=== PATIENT | female | born 1950 | race Two or more races ===

== ENCOUNTER 2020-03-08 05:50 | Inpatient (IN) | payer OTHER, MEDICAID ==
[~2020-03-08] VITALS: Ht 195.6 cm; Wt 93.4 kg
[~2020-03-08 05:50] MED LIST: LISI PO; norvasc PO
[2020-03-08] MEDS ORDERED: FUROSEMIDE 20 MG/2 ML VIAL ONE (05:58)
[2020-03-08] MEDS ORDERED: FUROSEMIDE 100 MG/10ML VIAL IV ONE (06:00)
[2020-03-08 06:02] VITALS: BP 190/91
[2020-03-08] MEDS ORDERED: cloNIDine HCL 0.1 MG TAB PO ONE (06:15)
[2020-03-08 06:29] LABS: Basophils # (auto) 0.1 10 ^3/uL (0-0.2); Basophils % (auto) 0.8 % (0.0-2.0); Eosinophils # (auto) 0.2 10 ^3/uL (0-0.8); Hematocrit 46.6 % (36.0-46.0); Hemoglobin 15.1 g/dL (12.2-16.2); Lymphocytes % (auto) 38.7 % (10.0-50.0); Mean Corpuscular Hemoglobin 28.4 pg (28.0-32.0); Mean Corpuscular Hgb Conc. 32.4 g/dL (32.0-36.0); Mean Corpuscular Volume 87.6 fL (80.0-100.0); Monocytes # (auto) 0.7 10 ^3/uL (0-1.3); Neutrophils # (auto) 5.3 10 ^3/uL (1.6-8.6); Neutrophils % (auto) 51.5 % (37.0-80.0); Nucleated Red Blood Cells % 0.1 %; Platelet Count (auto) 199 10^3/uL (140-450); Red Blood Cells 5.32 10^6/uL (4.0-5.20); Red Cell Distribution Width 15.8 % (11.8-14.3); White Blood Cell 10.2 10^3/uL (4.4-10.8)
[2020-03-08 06:46] LABS: Urine Bacteria NONE SEEN /hpf (None Seen); Urine Blood TRACE /uL (Negative); Urine Specific Gravity 1.006 (1.001-1.035); Urine WBC 1 /hpf (0 - 5)
[2020-03-08] MEDS ORDERED: SODIUM CHLORIDE 0.9% 1,000 ML IV ONE (06:49)
[2020-03-08 06:50] LABS: Albumin 3.6 g/dL (3.4-5.0); Anion Gap 7 (5-15); Blood Urea Nitrogen 22 mg/dL (7-18); Calcium 8.7 mg/dL (8.5-10.1); Carbon Dioxide 23 mmol/L (21-32); Chloride 108 mmol/L (98-107); Glucose 157 mg/dL (74-106); Magnesium 2.2 mg/dL (1.6-2.6); Potassium 3.9 mmol/L (3.5-5.1); Sodium 138 mmol/L (136-145)
[2020-03-08 06:52] LABS: Lactic Acid w/Reflex 2.6 mmol/L (0.4-2.0)
[2020-03-08 06:56] LABS: Alanine Aminotransferase 55 U/L (13-56); Alkaline Phosphatase 106 U/L (45-117); Aspartate Aminotransferase 53 U/L (15-37); BUN/Creatinine Ratio 25.9; Bilirubin, Total 0.4 mg/dL (0.2-1.0); GFR African American 86 mL/min; GFR Non-African American 71 mL/min
[2020-03-08] MEDS ORDERED: ZINC SULFATE 220mg CAP or TAB PO ONE (07:00)
[2020-03-08] MEDS ORDERED: AZITHROMYCIN 500MG/ 250ML 250 ML IV ONE (07:00)
[2020-03-08] MEDS ORDERED: ASCORBIC ACID 500 MG TAB PO ONE (07:00)
[2020-03-08] MEDS ORDERED: cefTRIAXone 1GM/50ML D5W 50 ML IV ONE (07:00)
[2020-03-08] MEDS ORDERED: LACTULOSE 20Gm/30ML SOLN PO PRN (08:45)
[2020-03-08] MEDS ORDERED: ALBUTEROL SULF 2.5 MG/0.5ML(0.5%) NEB SOLN NEB PRN (08:45)
[2020-03-08] MEDS ORDERED: MAGNESIUM SULFATE 1GM/100ML 100 ML IV ONE (08:45)
[2020-03-08] MEDS ORDERED: POTASSIUM EFFERVESENT TAB 25 MEQ PO ONE (08:45)
[2020-03-08] MEDS ORDERED: PROMETHAZINE HCL 25 MG/ML 1ML IV PRN (08:45)
[2020-03-08] MEDS ORDERED: MORPHINE SULF INJ 2 MG/ML SYRINGE 1ML IV PRN (08:45)
[2020-03-08] MEDS ORDERED: DEXTROSE (50%) 50ML SYRG IV PRN (08:45)
[2020-03-08] MEDS ORDERED: TEMAZEPAM 15 MG CAP PO PRN (08:45)
[2020-03-08] MEDS ORDERED: ACETAMINOPHEN 500 MG TAB PO PRN (08:45)
[2020-03-08] MEDS ORDERED: NITROGLYCERIN 0.4 MG SL TAB SL PRN (08:45)
[2020-03-08] MEDS ORDERED: IOHEXOL 350 MG/ML 100ML IJ ONE (08:59)
[2020-03-08 09:00] VITALS: BP 161/85
[2020-03-08] MEDS ORDERED: POTASSIUM CHL 20 Meq TABLET PO ONE (09:00)
[2020-03-08] MEDS: cefTRIAXone 1GM/50ML D5W 50 ML IV SCH (09:00)
[2020-03-08] MEDS ORDERED: ASPirin 81 mg TAB PO SCH (10:00)
[2020-03-08] MEDS ORDERED: NITROGLYCERIN 0.2MG/HR TOPICAL PATCH TD SCH (10:00)
[2020-03-08 10:22] VITALS: BP 148/69
[2020-03-08] MEDS: ACCU-CHEK COMFORT CURVE STRIP VI SCH ×3 (11:30→22:00)
[2020-03-08] MEDS: FUROSEMIDE 40 MG/4 ML VIAL IV SCH (11:31)
[2020-03-08] MEDS: ASPirin 81 mg TAB PO SCH (11:32)
[2020-03-08] MEDS: ENOXAPARIN SOD 40 MG/0.4 ML SYRINGE SC SCH (11:33)
[2020-03-08] MEDS: ENALAPRIL MALEATE 2.5 MG TAB PO SCH (11:33)
[2020-03-08] MEDS: traMADol HCL 50 MG TAB PO PRN (12:40)
[2020-03-08 13:00] VITALS: BP 149/69
[2020-03-08] MEDS ORDERED: METOPROLOL TARTRATE 25 MG TAB PO ONE (13:30)
[2020-03-08 14:05] LABS: Cholesterol 204 mg/dL (< 200); HDL Cholesterol 53 mg/dL (40-59); LDL Cholesterol 130 mg/dL (< 100); Triglycerides 233 mg/dL (< 150)
[2020-03-08] MEDS: SODIUM CHLOR 0.9% PF (SALINE LOCK) 10ML VIAL/SYR IV SCH ×2 (14:06→22:42)
[2020-03-08 20:06] LABS: Free T3 3.25 pg/mL (2.3-4.2); Free T4 (Free Thyroxine) 1.1 ng/dL (0.89-1.76)
[2020-03-08 22:00] VITALS: BP 161/77
[2020-03-08] MEDS ORDERED: ATORVASTATIN 20 MG TAB PO SCH ×2 (22:00)
[2020-03-08] MEDS: MAGNESIUM OXIDE 400 MG TAB PO SCH (22:40)
[2020-03-08] MEDS: METOPROLOL TARTRATE 25 MG TAB PO SCH (22:40)
[2020-03-09 04:30] VITALS: BP 135/68
[2020-03-09 06:26] LABS: Basophils # (auto) 0 10 ^3/uL (0-0.2); Basophils % (auto) 0.4 % (0.0-2.0); Eosinophils # (auto) 0.2 10 ^3/uL (0-0.8); Eosinophils % (auto) 2.5 % (0.0-7.0); Hematocrit 43.2 % (36.0-46.0); Hemoglobin 14.2 g/dL (12.2-16.2); Lymphocytes # (auto) 1.9 10 ^3/uL (0.4-5.4); Lymphocytes % (auto) 27.9 % (10.0-50.0); Mean Corpuscular Hemoglobin 28.6 pg (28.0-32.0); Mean Corpuscular Hgb Conc. 32.9 g/dL (32.0-36.0); Mean Corpuscular Volume 86.8 fL (80.0-100.0); Monocytes # (auto) 0.6 10 ^3/uL (0-1.3); Monocytes % (auto) 9.4 % (0.0-12.0); Neutrophils % (auto) 59.8 % (37.0-80.0); Platelet Count (auto) 184 10^3/uL (140-450); Red Blood Cells 4.98 10^6/uL (4.0-5.20); Red Cell Distribution Width 15.5 % (11.8-14.3); White Blood Cell 6.8 10^3/uL (4.4-10.8)
[2020-03-09] MEDS: SODIUM CHLOR 0.9% PF (SALINE LOCK) 10ML VIAL/SYR IV SCH ×2 (06:37→14:00)
[2020-03-09] MEDS: ACCU-CHEK COMFORT CURVE STRIP VI SCH (06:38)
[2020-03-09 06:49] LABS: Potassium 3.9 mmol/L (3.5-5.1)
[2020-03-09 06:54] LABS: BUN/Creatinine Ratio 26.9; Calcium 8.6 mg/dL (8.5-10.1)
[2020-03-09] MEDS ORDERED: LEVOTHYROXINE SODIUM 50 MCG TAB PO SCH (07:00)
[2020-03-09] MEDS: IOHEXOL 350 MG/ML 100ML IJ ONE ×2 (07:56→12:18)
[2020-03-09 09:00] VITALS: BP 153/73
[2020-03-09] MEDS: cefTRIAXone 1GM/50ML D5W 50 ML IV SCH (09:50)
[2020-03-09] MEDS: MAGNESIUM OXIDE 400 MG TAB PO SCH (09:51)
[2020-03-09] MEDS: FUROSEMIDE 40 MG/4 ML VIAL IV SCH (09:51)
[2020-03-09] MEDS: ENALAPRIL MALEATE 2.5 MG TAB PO SCH (09:51)
[2020-03-09] MEDS: ENOXAPARIN SOD 40 MG/0.4 ML SYRINGE SC SCH (09:51)
[2020-03-09] MEDS: ASPirin 81 mg TAB PO SCH (09:52)
[2020-03-09] MEDS: METOPROLOL TARTRATE 25 MG TAB PO SCH (09:53)
[2020-03-09] MEDS ORDERED: POTASSIUM CHL 20 Meq TABLET PO SCH (10:00)
[2020-03-09] MEDS ORDERED: PANTOPRAZOLE 40 MG TAB PO SCH (10:00)
[2020-03-09] MEDS ORDERED: AZITHROMYCIN 500MG/ 250ML 250 ML IV SCH (10:00)
[2020-03-09] MEDS ORDERED: MET25T PO (10:23)
[2020-03-09] MEDS ORDERED: ATOR20TA50 PO (10:23)
[2020-03-09] MEDS ORDERED: LEV50T PO (10:23)
[2020-03-09] MEDS ORDERED: ASPI81CH43 PO (10:23)
[2020-03-09] MEDS ORDERED: ENAL5TAB PO (10:23)
[2020-03-09] MEDS ORDERED: POTA1TAB61 PO (10:23)
[2020-03-09] MEDS ORDERED: FURO20TA3 PO (10:23)
[2020-03-09 11:40] VITALS: BP 153/73
[2020-03-09] MEDS ORDERED: OPTISON 3ml Vial for INJ IV ONE (12:03)
[2020-03-09 14:00] VITALS: BP 129/75
[2020-03-09] MEDS ORDERED: SACU1TAB PO (16:33)
[2020-03-09 17:00] VITALS: BP 160/77
[2020-03-09] MEDS: traMADol HCL 50 MG TAB PO PRN (17:20)
[2020-03-09 17:59] LABS: BUN/Creatinine Ratio 24.7; Calcium 8.6 mg/dL (8.5-10.1); Magnesium 2.5 mg/dL (1.6-2.6)
[2020-03-10] MEDS ORDERED: SACUBITRIL-VALSARTAN 24mg/26mg TAB PO SCH (22:00)
== END 2020-03-09 19:06 | disposition home or self-care (01) | DRG 291 ==
LOC: ER 05:50 → TELE 05:51 → TELE-EAST 11:17 → TELE-CENTR 18:02
PROVIDERS: ADMIT Internal Medicine; ATTEND Internal Medicine
DX: I11.0 Hypertensive heart disease with heart failure (principal); J18.9 Pneumonia, unspecified organism; J96.00 Acute respiratory failure, unspecified whether with hypoxia or hypercapnia; I50.43 Acute on chronic combined systolic (congestive) and diastolic (congestive) heart failure; I16.0 Hypertensive urgency; R73.9 Hyperglycemia, unspecified; E03.9 Hypothyroidism, unspecified; E78.5 Hyperlipidemia, unspecified; E66.01 Morbid (severe) obesity due to excess calories; Z03.818 Encounter for observation for suspected exposure to other biological agents ruled out; Z90.49 Acquired absence of other specified parts of digestive tract; Z88.1 Allergy status to other antibiotic agents; Z88.2 Allergy status to sulfonamides; Z98.51 Tubal ligation status; Z68.24 Body mass index [BMI] 24.0-24.9, adult
CPT/HCPCS: 36415; 36600; 71045; 71046; 71275; 80048; 80053; 80061; 81001; 82550; 82805; 82962; 83036; 83605; 83735; 83880; 84439; 84443; 84481; 84484; 85025; 85379; 87040; 87070; 87804; 87880; 93005; 93306; 93970; 94640; 94660; 96365; 96366; 96368; 96375; 99291; G0378; J0696; Q9956

== ENCOUNTER 2020-03-11 12:06 | Inpatient (IN) | payer OTHER, MEDICAID ==
[~2020-03-11] VITALS: Ht 157.5 cm; Wt 88.9 kg
[~2020-03-11 12:06] MED LIST changes: +ASPI81CH43 PO; +ATOR20TA50 PO; +FURO20TA3 PO; +LEV50T PO; -LISI PO; +MET25T PO; +POTA1TAB61 PO; +SACU1TAB PO; -norvasc PO
[2020-03-11] MEDS ORDERED: methylPREDNISolone SOD SUCC 125 MG/2 ML VL ONE (13:06)
[2020-03-11] MEDS ORDERED: diphenhdrAMINE HCL 50 MG/1 ML VL ONE (13:06)
[2020-03-11] MEDS ORDERED: SODIUM CHLORIDE 0.9% 1,000 ML IV ONE (13:15)
[2020-03-11] MEDS ORDERED: FAMOTIDINE (10MG/ML) 2ML VL IV ONE (13:15)
[2020-03-11] MEDS ORDERED: SODIUM CHLORIDE 0.9% 1,000 ML IVB ONE (13:17)
[2020-03-11 13:22] LABS: Basophils # (auto) 0 10 ^3/uL (0-0.2); Eosinophils # (auto) 0.1 10 ^3/uL (0-0.8); Monocytes # (auto) 0.7 10 ^3/uL (0-1.3); Nucleated Red Blood Cells % 0.1 %
[2020-03-11 13:23] LABS: Basophils % (auto) 0.3 % (0.0-2.0); Eosinophils % (auto) 1.6 % (0.0-7.0); Hematocrit 53.1 % (36.0-46.0); Hemoglobin 16.9 g/dL (12.2-16.2); Lymphocytes % (auto) 24.4 % (10.0-50.0); Mean Corpuscular Hemoglobin 27.9 pg (28.0-32.0); Mean Corpuscular Hgb Conc. 31.8 g/dL (32.0-36.0); Mean Corpuscular Volume 87.7 fL (80.0-100.0); Monocytes % (auto) 7.9 % (0.0-12.0); Neutrophils # (auto) 5.5 10 ^3/uL (1.6-8.6); Neutrophils % (auto) 65.8 % (37.0-80.0); Platelet Count (auto) 202 10^3/uL (140-450); Red Blood Cells 6.05 10^6/uL (4.0-5.20); Red Cell Distribution Width 15.5 % (11.8-14.3); White Blood Cell 8.4 10^3/uL (4.4-10.8)
[2020-03-11] MEDS ORDERED: diphenhdrAMINE HCL 50 MG/1 ML VL IV ONE (13:30)
[2020-03-11] MEDS ORDERED: methylPREDNISolone SOD SUCC 125 MG/2 ML VL IV ONE (13:30)
[2020-03-11 13:40] LABS: Albumin 3.6 g/dL (3.4-5.0); Anion Gap 6 (5-15); Blood Urea Nitrogen 27 mg/dL (7-18); Calcium 8.6 mg/dL (8.5-10.1); Carbon Dioxide 28 mmol/L (21-32); Chloride 103 mmol/L (98-107); Glucose 123 mg/dL (74-106); Potassium 4.3 mmol/L (3.5-5.1); Sodium 137 mmol/L (136-145)
[2020-03-11 13:45] LABS: Alanine Aminotransferase 53 U/L (13-56); Alkaline Phosphatase 93 U/L (45-117); Aspartate Aminotransferase 35 U/L (15-37); BUN/Creatinine Ratio 24.8; Bilirubin, Total 0.4 mg/dL (0.2-1.0); GFR African American 64 mL/min; GFR Non-African American 53 mL/min
[2020-03-11 13:58] LABS: INR 1.17 (0.9-1.15); Partial Thromboplastin Time 29.9 sec (23.64-32.05)
[2020-03-11] MEDS ORDERED: MORPHINE SULF INJ 2 MG/ML SYRINGE 1ML IV PRN (14:45)
[2020-03-11] MEDS ORDERED: ACETAMINOPHEN 500 MG TAB PO PRN (14:45)
[2020-03-11] MEDS ORDERED: NITROGLYCERIN 0.4 MG SL TAB SL PRN (14:45)
[2020-03-11] MEDS ORDERED: LACTULOSE 20Gm/30ML SOLN PO PRN (14:45)
[2020-03-11] MEDS ORDERED: ALBUTEROL SULF 2.5 MG/0.5ML(0.5%) NEB SOLN NEB PRN (14:45)
[2020-03-11] MEDS ORDERED: PROMETHAZINE HCL 25 MG/ML 1ML IV PRN (14:45)
[2020-03-11] MEDS: methylPREDNISolone SOD SUCC 40 MG/ML VL IV SCH ×2 (14:45→22:34)
[2020-03-11 15:43] VITALS: BP 151/88
--- NOTE | 2020-03-11 15:57 | NUR ---
RT NOTE: NO TX INDICATED AT THIS TIME. NO SIGNS OF RESPIRATORY DISTRESS. ON RA SPO2 94 HR 69 RR 16. LUNG SOUNDS CLEAR/DIMINISHED T/O. PT AWARE THAT IF NEED FOR TX ARISES TO HAVE RESPIRATORY PAGED. WILL CONTINUE TO MONITOR.
--- NOTE | 2020-03-11 18:30 | NUR ---
Respiratory note: NO PRN TX GIVEN AT THIS TIME, NOT INDICATED. PT RESTING COMFORTABLY, NO SOB NOTED. SPO2 94% ON RA, HR 87, RR 16.
--- NOTE | 2020-03-11 20:00 | NUR ---
Telemetry admit from [facility] admitted to Telemetry unit. Patient oriented to Sarah Pemberton, primary RN, unit, room, bed, and unit policies regarding patient care and visiting hours. Patient now on continuous telemetry monitoring, tele box #53 and telemetry reading on arrival to unit is NSR, ST elevation, BBB. Patient weighed by bedscale and encouraged to call if they need something. All questions and concerns addressed, patient verbalized understanding.
[2020-03-11] MEDS: traMADol HCL 50 MG TAB PO PRN (20:56)
[2020-03-11] MEDS ORDERED: ZOLP5TAB5 PO (21:57)
[2020-03-11 22:00] VITALS: BP 156/94
--- NOTE | 2020-03-11 22:02 | NUR ---
HOSPITALIST PAGED PATIENT REQUESTING SLEEPING PILL
--- NOTE | 2020-03-11 22:16 | NUR ---
HOSPITALIST RETURNS CALL, NEW ORDERS RECEIVED TO CONTINUE HOME MED AMBIEN 5MG PO QHSPRN. ORDER READ BACK AND VERIFIED.
[2020-03-11] MEDS: FAMOTIDINE 20 MG TAB PO SCH (22:34)
[2020-03-11] MEDS: ZOLPIDEM TARTRATE 5 MG TAB PO PRN (22:35)
[2020-03-11] MEDS: CARVEDILOL 12.5 MG TAB PO SCH (22:35)
[2020-03-11] MEDS: LISINOPRIL 20 MG TAB PO SCH (22:35)
[2020-03-11] MEDS ORDERED: ENAL5TAB PO (22:42)
--- NOTE | 2020-03-12 01:00 | NUR ---
URINE SAMPLE SENT TO LAB FOR UA AND TOX SCREEN
--- NOTE | 2020-03-12 01:15 | NUR ---
PATIENT SITTING UP AT BEDSIDE TALKING TO ROOMMATE. PATIENT DENIES SYMPTOMS AT THIS TIME. PATIENT ON ROOM AIR WITH NO S/S OF DISTRESS NOTED.
[2020-03-12 01:22] LABS: Urine Amorphous Crystal FEW /hpf (None Seen); Urine Bacteria FEW /hpf (None Seen); Urine Blood 2+ /uL (Negative); Urine Hyaline Cast FEW /lpf (0 - 2); Urine Mucus FEW (None Seen); Urine Specific Gravity 1.021 (1.001-1.035); Urine WBC 2 /hpf (0 - 5)
[2020-03-12 01:28] LABS: Alcohol, Urine < 3.0 mg/dL (0-10); Amphetamine Screen, Urine NEGATIVE (NEGATIVE); Barbiturate Scree,Urine NEGATIVE (NEGATIVE); Benzodiazephine Screen, Urine NEGATIVE (NEGATIVE); Cannabinoid Screen, Urine NEGATIVE (NEGATIVE); Cocaine Screen, Urine NEGATIVE (NEGATIVE); Opiate Scree,Urine NEGATIVE (NEGATIVE); Phencyclidine Screen, Urine NEGATIVE (NEGATIVE)
[2020-03-12 05:00] VITALS: BP 115/69
--- NOTE | 2020-03-12 06:23 | NUR ---
MRSA SWAB SENT TO LAB
--- NOTE | 2020-03-12 07:07 | NUR ---
PT ASSESSED FOR PRN HHN TX. PT IS ON ROOM AIR, SPO2 92%, HR 83, RR 16. NO S/S OF RESPIRATORY DISTRESS. PRN HHN TX NOT INDICATED AT THIS TIME. WILL CONTINUE TO MONITOR.
--- NOTE | 2020-03-12 07:30 | NUR ---
Morning note Patient resting in bed with even and unlabored respirations, no distress noted. Instructed patient on POC, fall precautions, and to call for assistance as needed. patient verbalized understanding. Fall precautions in place with call light within reach.
--- NOTE | 2020-03-12 08:01 | NUR ---
nutrition note Pt consult for NO PORK. dietary informed
[2020-03-12 09:00] VITALS: BP 119/59
[2020-03-12] MEDS ORDERED: ENOXAPARIN SOD 40 MG/0.4 ML SYRINGE SC SCH (10:00)
[2020-03-12] MEDS: methylPREDNISolone SOD SUCC 40 MG/ML VL IV SCH (10:08)
[2020-03-12] MEDS: FAMOTIDINE 20 MG TAB PO SCH ×2 (10:08→21:49)
[2020-03-12] MEDS: amLODIPine BESYLATE 5 MG TAB PO SCH (10:08)
[2020-03-12] MEDS: LISINOPRIL 20 MG TAB PO SCH (10:09)
[2020-03-12] MEDS: CARVEDILOL 12.5 MG TAB PO SCH ×3 (10:09→21:49)
--- NOTE | 2020-03-12 11:12 | NUR ---
Patient transferred to room 276A via hospital bed. All personal belongings transferred with the patient. Respirations even and unlabored, no distress noted. Fall precautions in place with bed in lowest locked position with call light within reach.
--- NOTE | 2020-03-12 11:45 | NUR ---
was at bedside - Dr. Arriola This RN was at bedside.
[2020-03-12 13:30] VITALS: BP 119/60
--- NOTE | 2020-03-12 14:33 | NUR ---
Patient resting in bed with even and unlabored respirations, no distress noted. Call light within reach.
[2020-03-12 16:44] VITALS: BP 148/63
--- NOTE | 2020-03-12 18:41 | NUR ---
Closing note Patient resting in bed with even and unlabored respirations, no distress noted. Fall precautions in place with call light within reach.
--- NOTE | 2020-03-12 19:15 | NUR ---
Care endorsed to XAVIER Bell. Addendum: 03/12/20 at 1917 by Hayley Leach RN Care endorsed to XAVIER Bryson, not XAVIER Bell.
--- NOTE | 2020-03-12 19:35 | NUR ---
Opening Shift Note Assumed care of patient, awake and alert. No S/S of distress/SOB or pain. Fall and safety precautions in place. Call light within reach and able to use. Updated patient on her plan of care and to call for assist PRN, patient verbalized understanding and in agreement. Will continue to monitor for changes Q1hr and PRN.
--- NOTE | 2020-03-12 20:10 | NUR ---
Respiratory note: PT ASSESSED FOR PRN MED NEB TX. HR 80, RR 18, SPO2 98% ON RA. NO S/S OF ANY RESPIRATORY DISTRESS NOTED. ADVISED PT TO CALL IF TX IS NEEDED.
[2020-03-12] MEDS ORDERED: MORPHINE SULF INJ 2 MG/ML SYRINGE 1ML IV PRN (21:30)
--- NOTE | 2020-03-12 21:30 | NUR ---
RE: HIGH BP AND PAIN PATIENT'S BLOOD PRESSURE 177/74 mmHg. PATIENT COMPLAINS OF PAIN RATED 8/10 USING ADULT PAIN SCALE DESCRIBED GENERALIZED HEADACHE. SPOKE TO ON-CALL HOSP AT THIS TIME. RECEIVED NEW ORDERS FOR PRN SEVERE PAIN MEDICATION AND PRN HIGH BP MEDICATION (SEE NEW ORDERS). WILL CARRY OUT. WILL CONTINUE TO MONITOR.
[2020-03-12] MEDS: ZOLPIDEM TARTRATE 5 MG TAB PO PRN (21:50)
[2020-03-12 22:00] VITALS: BP 177/74
--- NOTE | 2020-03-12 22:00 | NUR ---
RE: EMAR MANAGER MACHINE / MISSED MED EMAR SHOWS MEDIACTION DOSE MISSED. MEDICATION WAS GIVEN. ORDER WAS DUPLICATE. PATIENT RECEIVED MEDICATION ONCE AT THIS TIME.
[2020-03-12] MEDS: hydrALAZINE HCL 25 MG TAB PO SCH ×2 (22:07→22:11)
--- NOTE | 2020-03-12 22:38 | NUR ---
Pain Reassessment Patient states she feels much better and pain is rated 0/10 using adult pain scale. Will continue to monitor.
--- NOTE | 2020-03-12 22:40 | NUR ---
BP RECHECK PATIENT'S BLOOD PRESSURE IS 156/63 [facility]. WILL CONTINUE TO MONITOR.
[2020-03-12] MEDS ORDERED: hydrALAZINE HCL 25 MG TAB PO PRN (23:15)
--- NOTE | 2020-03-13 | NUR ---
RE: GENERALIZED ITCHING PATIENT INFORMS THIS RN OF GENERALIZED ITCHING THAT HAS SUBSIDED AT THIS TIME. PATIENT STATES SHE IS NO LONGER ITCHING. SPOKE TO ON-CALL MD HOSPITALIST TO UPDATE ON PATIENT'S PAST COMPLAINT EXPRESSED AT THIS TIME. RECEIVED NEW ORDER (SEE NEW ORDERS), READ BACK AND VERIFIED. ADDITIONALLY, UPDATED MD ON PATIENT'S LAST BP SINCE PREVIOUS OCCURRENCE. WILL CONTINUE TO MONITOR PATIENT.
[2020-03-13] MEDS ORDERED: diphenhdrAMINE HCL 25 MG CAP PO PRN (00:15)
[2020-03-13 02:00] VITALS: BP 119/55
--- NOTE | 2020-03-13 02:00 | NUR ---
BP PATIENT'S BLOOD PRESSURE RECHECK AT THIS TIME: 119/55 MMHG SEMI FOWLERS, HEART RATE 61 BPM. PATIENT RESTING IN BED WITH NO S/S OF DISTRESS. WILL CONTINUE TO MONITOR.
[2020-03-13 05:00] VITALS: BP 123/61
[2020-03-13 06:25] LABS: Potassium 4.2 mmol/L (3.5-5.1)
[2020-03-13 06:32] LABS: BUN/Creatinine Ratio 40.8; Calcium 8.2 mg/dL (8.5-10.1)
--- NOTE | 2020-03-13 06:45 | NUR ---
Respiratory note: PT ASSESSED FOR PRN MN TX. HR 65, RR 18, POX 100% ON RA, BS ARE CLEAR/DIMINISHED. NO SOB OR DISTRESS NOTED AT THIS TIME. PT WAS NOTIFY TO HAVE RT PAGE FOR NEEDED TX.
--- NOTE | 2020-03-13 07:30 | NUR ---
RECEIVED REPORT FROM NIGHT NURSE. PATIENT RESTING IN BED, NO DISTRESS NOTED. WILL CONTINUE TO MONITOR.
[2020-03-13 09:00] VITALS: BP 161/67
[2020-03-13] MEDS ORDERED: LISINOPRIL 20 MG TAB PO SCH (10:00)
[2020-03-13] MEDS: FAMOTIDINE 20 MG TAB PO SCH (10:10)
[2020-03-13] MEDS: amLODIPine BESYLATE 5 MG TAB PO SCH (10:11)
[2020-03-13] MEDS: CARVEDILOL 12.5 MG TAB PO SCH (10:12)
[2020-03-13] MEDS: traMADol HCL 50 MG TAB PO PRN (11:39)
[2020-03-13 13:00] VITALS: BP 154/64
--- NOTE | 2020-03-13 15:00 | NUR ---
HOME MEDS KEPT IN PHARMACY RETURNED TO PATIENT. PAPERWORK SIGNED.
--- NOTE | 2020-03-13 15:36 | NUR ---
Discharge instructions given as ordered. Encourage to follow up with PMD as instructed. All questions and concerns addressed. Patient verbalized understanding. Medication reconciliation form completed and copy given to patient. Home medications held in Pharmacy returned to patient. IV removed with catheter intact, pressure dressing applied. Telemetry unit returned to ICU. Patient taken to vehicle via wheelchair with all personal belongings, accompanied by staff member. No distress noted at time of departure.
== END 2020-03-13 15:35 | disposition home or self-care (01) | DRG 916 ==
LOC: ER 12:06 → TELE 12:07 → TELE-WESTW 19:51
PROVIDERS: ADMIT Internal Medicine; ATTEND Internal Medicine
DX: T78.2XXA Anaphylactic shock, unspecified, initial encounter (principal); I50.42 Chronic combined systolic (congestive) and diastolic (congestive) heart failure; L50.9 Urticaria, unspecified; I11.0 Hypertensive heart disease with heart failure; T50.1X5A Adverse effect of loop [high-ceiling] diuretics, initial encounter; E78.5 Hyperlipidemia, unspecified; R73.9 Hyperglycemia, unspecified; E66.9 Obesity, unspecified; Z90.49 Acquired absence of other specified parts of digestive tract; T37.0X5A Adverse effect of sulfonamides, initial encounter; T46.5X5A Adverse effect of other antihypertensive drugs, initial encounter; Z88.2 Allergy status to sulfonamides; Y92.89 Other specified places as the place of occurrence of the external cause
CPT/HCPCS: 36415; 71045; 80048; 80053; 80307; 81001; 83735; 83880; 84484; 85025; 85610; 85730; 87081; 93005; G0378; J3490

== ENCOUNTER → 2020-08-02 | Outpatient (CLI) | payer OTHER, MEDICAID ==
[~2020-08-02] VITALS: Ht 157.5 cm; Wt 84.4 kg
[~2020-08-02] MED LIST changes: +ADENOSINE 71 MG in GIVE UN-DILUTED 0 ML IV STA; +ENAL5TAB10 PO; +ZOLP5TAB5 PO
== END | disposition home or self-care (01) ==
LOC: XY 08:19
PROVIDERS: ATTEND Internal Medicine
DX: J45.909 Unspecified asthma, uncomplicated (principal); R06.02 Shortness of breath; I11.0 Hypertensive heart disease with heart failure; I50.40 Unspecified combined systolic (congestive) and diastolic (congestive) heart failure; I42.9 Cardiomyopathy, unspecified; F41.9 Anxiety disorder, unspecified; R07.9 Chest pain, unspecified
CPT/HCPCS: 78452; 93017; A9500; J0153

== ENCOUNTER 2021-11-08 20:44 | Emergency (ER) | payer OTHER, MEDICAID ==
[~2021-11-08] VITALS: Ht 157.5 cm; Wt 81.6 kg
[~2021-11-08 20:44] MED LIST changes: -ADENOSINE 71 MG in GIVE UN-DILUTED 0 ML IV STA
[2021-11-08 22:16] LABS: Basophils # (auto) 0 10 ^3/uL (0-0.2); Basophils % (auto) 0.2 % (0.0-2.0); Eosinophils # (auto) 0 10 ^3/uL (0-0.8); Eosinophils % (auto) 0.3 % (0.0-7.0); Hematocrit 38.7 % (36.0-46.0); Hemoglobin 12.9 g/dL (12.2-16.2); Lymphocytes # (auto) 1.9 10 ^3/uL (0.4-5.4); Lymphocytes % (auto) 36.4 % (10.0-50.0); Mean Corpuscular Hemoglobin 29.7 pg (28.0-32.0); Mean Corpuscular Hgb Conc. 33.4 g/dL (32.0-36.0); Mean Corpuscular Volume 89.1 fL (80.0-100.0); Monocytes # (auto) 0.6 10 ^3/uL (0-1.3); Monocytes % (auto) 11.4 % (0.0-12.0); Neutrophils # (auto) 2.7 10 ^3/uL (1.6-8.6); Neutrophils % (auto) 51.7 % (37.0-80.0); Nucleated Red Blood Cells % 0.1 %; Red Blood Cells 4.35 10^6/uL (4.0-5.20); White Blood Cell 5.3 10^3/uL (4.4-10.8)
[2021-11-08 22:31] LABS: INR 1.14 (0.9-1.15); Partial Thromboplastin Time 28.8 sec (23.6-33.0)
[2021-11-08 22:36] LABS: Albumin 3.2 g/dL (3.4-5.0); Calcium 8.3 mg/dL (8.5-10.1); Magnesium 2.3 mg/dL (1.6-2.6); Potassium 3.8 mmol/L (3.5-5.1)
[2021-11-08 22:41] LABS: Bilirubin, Total 0.3 mg/dL (0.2-1.0); Total Protein 7.4 g/dL (6.4-8.2)
[2021-11-09 00:02] VITALS: BP 151/45
[2021-11-09] MEDS ORDERED: ONDANSETRON ODT 4 MG TAB PO ONE (00:30)
== END 2021-11-09 01:11 | disposition home or self-care (01) ==
LOC: ER 20:46
DX: R07.89 Other chest pain (principal); R06.02 Shortness of breath; I11.0 Hypertensive heart disease with heart failure; I50.9 Heart failure, unspecified; E78.5 Hyperlipidemia, unspecified; Z90.49 Acquired absence of other specified parts of digestive tract; Z98.51 Tubal ligation status
CPT/HCPCS: 36415; 71045; 80053; 83735; 83880; 84443; 84484; 85025; 85610; 85730; 93005; 99285; Q0162

== ENCOUNTER → 2024-02-03 | Outpatient (CLI) | payer OTHER, MEDICAID ==
[~2024-02-03] VITALS: Ht 154.9 cm; Wt 74.8 kg
[~2024-02-03] MED LIST changes: -ENAL5TAB10 PO; +ENAL5TAB22 PO; +POTA-215 PO; -POTA1TAB61 PO
[2024-02-03] MEDS: ADENOSINE 63 MG in GIVE UN-DILUTED 0 ML IV ONE (12:38)
== END | disposition home or self-care (01) ==
LOC: XYW 08:56
PROVIDERS: ATTEND Internal Medicine
DX: I13.0 Hypertensive heart and chronic kidney disease with heart failure and stage 1 through stage 4 chronic kidney disease, or unspecified chronic kidney disease (principal); I50.42 Chronic combined systolic (congestive) and diastolic (congestive) heart failure; N18.2 Chronic kidney disease, stage 2 (mild); R07.9 Chest pain, unspecified; E87.5 Hyperkalemia; I42.0 Dilated cardiomyopathy; I70.0 Atherosclerosis of aorta; I27.20 Pulmonary hypertension, unspecified
CPT/HCPCS: 78452; 93017; A9500; J0153

== ENCOUNTER 2024-02-15 16:17 | Inpatient (IN) | payer OTHER, MEDICAID ==
[~2024-02-15] VITALS: Ht 154.9 cm; Wt 74.7 kg
[2024-02-15 16:42] LABS: Basophils # (auto) 0 10 ^3/uL (0-0.2); Basophils % (auto) 0.2 % (0.0-2.0); Eosinophils # (auto) 0.1 10 ^3/uL (0-0.8); Eosinophils % (auto) 1.5 % (0.0-7.0); Hematocrit 44.6 % (36.0-46.0); Hemoglobin 14.7 g/dL (12.2-16.2); Lymphocytes # (auto) 2.3 10 ^3/uL (0.4-5.4); Lymphocytes % (auto) 29.7 % (10.0-50.0); Mean Corpuscular Hgb Conc. 32.9 g/dL (32.0-36.0); Mean Corpuscular Volume 88.2 fL (80.0-100.0); Monocytes # (auto) 0.7 10 ^3/uL (0-1.3); Neutrophils # (auto) 4.6 10 ^3/uL (1.6-8.6); Neutrophils % (auto) 59.6 % (37.0-80.0); Nucleated Red Blood Cells % 0.2 %; Red Blood Cells 5.05 10^6/uL (4.0-5.20); Red Cell Distribution Width 15.5 % (11.8-14.3); White Blood Cell 7.7 10^3/uL (4.4-10.8)
[2024-02-15 16:57] LABS: INR 1.18 (0.9-1.15); Partial Thromboplastin Time 31.8 SEC (24.5-34.5); Prothrombin Time 12.4 sec (9.3-11.8)
[2024-02-15 17:00] LABS: Alanine Aminotransferase 26 U/L (7-40); Albumin 4.4 g/dL (3.2-4.8); Alkaline Phosphatase 150 U/L (46-116); Anion Gap 5 (5-15); Aspartate Aminotransferase 24 U/L (13-40); BUN/Creatinine Ratio 20.9 (10.0-20.0); Blood Urea Nitrogen 19 mg/dL (9-23); Calcium 9.5 mg/dL (8.5-10.1); Carbon Dioxide 28 mmol/L (20-30); Chloride 106 mmol/L (98-107); Glucose 98 mg/dL (74-106); Potassium 4.1 mmol/L (3.5-5.1); Sodium 139 mmol/L (136-145)
[2024-02-15 17:01] LABS: Bilirubin, Total 0.6 mg/dL (0.2-1.0); Total Protein 6.8 g/dL (5.7-8.2)
[2024-02-15] MEDS ORDERED: ATOR-47 PO (22:43)
[2024-02-15] MEDS ORDERED: RANO10003 PO (22:43)
[2024-02-15] MEDS ORDERED: OMEP1CAP70 PO (22:43)
[2024-02-15] MEDS ORDERED: AMLO1TAB23 PO (22:43)
[2024-02-15] MEDS ORDERED: DOXA1TAB28 PO (22:43)
[2024-02-15] MEDS ORDERED: IPRATROPIUM BROM 0.5 MG/2.5ML INH SOL NEB PRN (22:45)
[2024-02-15] MEDS ORDERED: ONDANSETRON HCL 4 MG/2 ML VIAL IV PRN (22:45)
[2024-02-15] MEDS ORDERED: ALBUTEROL SULF 2.5 MG/0.5ML(0.5%) NEB SOLN NEB PRN (22:45)
[2024-02-15] MEDS ORDERED: MORPHINE SULFATE INJ 2 MG/ml SYRG IV PRN ×2 (22:45)
[2024-02-15] MEDS ORDERED: ACETAMINOPHEN 325 MG TAB PO PRN (22:45)
[2024-02-15] MEDS ORDERED: NITROGLYCERIN 0.4 MG SL TAB SL PRN (22:45)
[2024-02-15] MEDS ORDERED: DOCUSATE SOD 100 MG CAP PO PRN (22:45)
[2024-02-15 23:12] VITALS: BP 126/51; PULSE 55; RESP 18; TEMP 97.6; O2SAT 95
[2024-02-15 23:15] VITALS: O2SAT 95
[2024-02-15] MEDS: KETOROLAC TROMETH 30 MG/ML 1ML VIAL IV ONE (23:45)
[2024-02-15] MEDS: HYDROcodone-ACET 5/325MG TAB PO PRN (23:45)
[2024-02-16] VITALS (10 sets, daily range): BP systolic 106–124; BP diastolic 45–59; PULSE 50–59; RESP 16–18; TEMP 97.4–97.9; O2SAT 91–97
[2024-02-16 06:21] LABS: Basophils # (auto) 0 10 ^3/uL (0-0.2); Basophils % (auto) 0.2 % (0.0-2.0); Eosinophils # (auto) 0.1 10 ^3/uL (0-0.8); Eosinophils % (auto) 1.5 % (0.0-7.0); Hematocrit 39.9 % (36.0-46.0); Hemoglobin 13.2 g/dL (12.2-16.2); Lymphocytes # (auto) 2.2 10 ^3/uL (0.4-5.4); Lymphocytes % (auto) 33.7 % (10.0-50.0); Mean Corpuscular Hemoglobin 29.1 pg (28.0-32.0); Mean Corpuscular Hgb Conc. 33.1 g/dL (32.0-36.0); Mean Corpuscular Volume 87.9 fL (80.0-100.0); Monocytes # (auto) 0.6 10 ^3/uL (0-1.3); Monocytes % (auto) 9.2 % (0.0-12.0); Neutrophils # (auto) 3.6 10 ^3/uL (1.6-8.6); Neutrophils % (auto) 55.4 % (37.0-80.0); Nucleated Red Blood Cells % 0.1 %; Red Blood Cells 4.54 10^6/uL (4.0-5.20); White Blood Cell 6.5 10^3/uL (4.4-10.8)
[2024-02-16 06:32] LABS: Alanine Aminotransferase 21 U/L (7-40); Alkaline Phosphatase 133 U/L (46-116); Anion Gap 9 (5-15); Aspartate Aminotransferase 32 U/L (13-40); BUN/Creatinine Ratio 19.1 (10.0-20.0); Blood Urea Nitrogen 18 mg/dL (9-23); Calcium 9.3 mg/dL (8.5-10.1); Carbon Dioxide 25 mmol/L (20-30); Chloride 104 mmol/L (98-107); Glucose 86 mg/dL (74-106); Potassium 3.6 mmol/L (3.5-5.1); Sodium 138 mmol/L (136-145)
[2024-02-16 06:33] LABS: Albumin 3.8 g/dL (3.2-4.8); Bilirubin, Total 0.7 mg/dL (0.2-1.0); Total Protein 6.2 g/dL (5.7-8.2)
[2024-02-16] MEDS: LEVOTHYROXINE SODIUM 50 MCG TAB PO SCH (06:51)
[2024-02-16] MEDS ORDERED: PATIENTS OWN MEDICATION (Omeprazole (Omeprazole Dr) 1 CAP) PO SCH (10:00)
[2024-02-16] MEDS ORDERED: RANOLAZINE ER 500 MG TAB PO SCH (10:00)
[2024-02-16] MEDS ORDERED: PATIENTS OWN MEDICATION (Ranolazine (Ranolazine ER) 1 TAB) PO SCH (10:00)
[2024-02-16] MEDS ORDERED: PATIENTS OWN MEDICATION (Amlodipine Besylate 1 TAB) PO SCH (10:00)
[2024-02-16] MEDS ORDERED: PATIENTS OWN MEDICATION (Atorvastatin Calcium 1 TAB) PO SCH (10:00)
[2024-02-16] MEDS: DOXAZOSIN MESYLATE 1 MG PO SCH (10:00)
[2024-02-16] MEDS: ENOXAPARIN SOD 40 MG/0.4 ML SYRINGE SC SCH (10:03)
[2024-02-16] MEDS: PANTOPRAZOLE 40 MG TAB PO SCH (10:03)
[2024-02-16] MEDS: ASPirin 81 mg TAB PO SCH (10:03)
[2024-02-16] MEDS: SACUBITRIL-VALSARTAN 24mg/26mg TAB PO SCH (10:06)
[2024-02-16] MEDS ORDERED: ATOR40TA52 PO (10:06)
[2024-02-16] MEDS: amLODIPine BESYLATE 5 MG TAB PO SCH (10:07)
[2024-02-16 11:23] LABS: Magnesium 1.8 mg/dL (1.6-2.6)
[2024-02-16] MEDS: RANOLAZINE ER 500 MG TAB PO SCH (14:03)
[2024-02-16] MEDS: EMPAGLIFLOZIN 10 MG TAB PO SCH (14:04)
[2024-02-16] MEDS ORDERED: ATORVASTATIN 20 MG TAB PO SCH (22:00)
[2024-02-16] MEDS: ATORVASTATIN 20 MG TAB PO SCH (22:29)
[2024-02-16] MEDS: TEMAZEPAM 15 MG CAP PO ONE (22:29)
[2024-02-17] VITALS (19 sets, daily range): BP systolic 104–126; BP diastolic 53–62; PULSE 48–64; RESP 13–19; TEMP 97.6–98.1; O2SAT 92–100
[2024-02-17 05:37] LABS: Anion Gap 5 (5-15); Calcium 9.5 mg/dL (8.5-10.1); Carbon Dioxide 28 mmol/L (20-30); Chloride 104 mmol/L (98-107); Potassium 4.6 mmol/L (3.5-5.1); Sodium 137 mmol/L (136-145)
[2024-02-17 05:40] LABS: Basophils # (auto) 0 10 ^3/uL (0-0.2); Basophils % (auto) 0.3 % (0.0-2.0); Eosinophils # (auto) 0.1 10 ^3/uL (0-0.8); Eosinophils % (auto) 2.3 % (0.0-7.0); Hematocrit 42.2 % (36.0-46.0); Lymphocytes # (auto) 2.4 10 ^3/uL (0.4-5.4); Lymphocytes % (auto) 44.5 % (10.0-50.0); Mean Corpuscular Hemoglobin 29.3 pg (28.0-32.0); Mean Corpuscular Hgb Conc. 33.1 g/dL (32.0-36.0); Mean Corpuscular Volume 88.5 fL (80.0-100.0); Monocytes # (auto) 0.5 10 ^3/uL (0-1.3); Monocytes % (auto) 8.8 % (0.0-12.0); Neutrophils # (auto) 2.4 10 ^3/uL (1.6-8.6); Neutrophils % (auto) 44.1 % (37.0-80.0); Nucleated Red Blood Cells % 0.1 %; Red Blood Cells 4.77 10^6/uL (4.0-5.20); Red Cell Distribution Width 15.5 % (11.8-14.3); White Blood Cell 5.4 10^3/uL (4.4-10.8)
[2024-02-17 05:43] LABS: Glucose 96 mg/dL (74-106)
[2024-02-17 05:44] LABS: BUN/Creatinine Ratio 16.9 (10.0-20.0); Blood Urea Nitrogen 21 mg/dL (9-23)
[2024-02-17 05:48] LABS: INR 1.16 (0.9-1.15); Partial Thromboplastin Time 31.2 SEC (24.5-34.5); Prothrombin Time 12.2 sec (9.3-11.8)
[2024-02-17] MEDS ORDERED: HEPARIN SODIUM (PORCINE) 5000 UNITS/ML 1ML VIAL ONE (10:27)
[2024-02-17] MEDS ORDERED: ANGIOMAX 250 MG VIAL IV ONE (10:27)
[2024-02-17] MEDS ORDERED: VERAPAMIL 2.5MG/ML INJ 2ML VIAL IV ONE (10:27)
[2024-02-17] MEDS ORDERED: fentaNYL CITRATE 100 MCG/2 ML VL ONE (10:27)
[2024-02-17] MEDS ORDERED: LIDOCAINE 2%HCL (LOCAL ANESTH.) INJ 20ML MDV ONE (10:28)
[2024-02-17] MEDS ORDERED: MIDAZOLAM HCL 2MG/2ML 2ml VIAL (1mg/ml) ONE (10:28)
[2024-02-17] MEDS ORDERED: SODIUM CHL 0.9% 0 ML ONE (10:28)
[2024-02-17] MEDS ORDERED: IODIXANOL 320MG/ML 100ML BTL IV ONE ×2 (10:28→10:46)
[2024-02-17] MEDS ORDERED: SACU1TAB PO (13:18)
[2024-02-17] MEDS: TEMAZEPAM 15 MG CAP PO ONE (22:16)
[2024-02-18] VITALS (7 sets, daily range): BP systolic 104–124; BP diastolic 53–68; PULSE 49–71; RESP 16–19; TEMP 97.8–98.1; O2SAT 92–100
[2024-02-18] MEDS ORDERED: EMPA1TAB PO (08:34)
[2024-02-18 09:39] LABS: Base Excess -3.3 mmol/L (-2.0-2.0)
== END 2024-02-18 13:15 | disposition home or self-care (01) | DRG 287 ==
LOC: ER 16:17 → TELE 22:40 → TELE-CENTR 02-16 02:02
PROVIDERS: ADMIT Family Medicine; ATTEND Family Medicine
PROC: 4A023N7 Measurement of Cardiac Sampling and Pressure, Left Heart, Percutaneous Approach (ICD-10-PCS; principal; 2024-02-17)
PROC: B211YZZ Fluoroscopy of Multiple Coronary Arteries using Other Contrast (ICD-10-PCS; 2024-02-17)
PROC: B215YZZ Fluoroscopy of Left Heart using Other Contrast (ICD-10-PCS; 2024-02-17)
DX: I25.110 Atherosclerotic heart disease of native coronary artery with unstable angina pectoris (principal); I50.32 Chronic diastolic (congestive) heart failure; I42.9 Cardiomyopathy, unspecified; I11.0 Hypertensive heart disease with heart failure; E78.5 Hyperlipidemia, unspecified; M25.512 Pain in left shoulder; R00.1 Bradycardia, unspecified; E87.5 Hyperkalemia; E03.9 Hypothyroidism, unspecified; E66.9 Obesity, unspecified; Z88.1 Allergy status to other antibiotic agents; Z79.899 Other long term (current) drug therapy; Z79.82 Long term (current) use of aspirin; Z90.49 Acquired absence of other specified parts of digestive tract; Z68.31 Body mass index [BMI] 31.0-31.9, adult; Z82.49 Family history of ischemic heart disease and other diseases of the circulatory system; Z88.3 Allergy status to other anti-infective agents
CPT/HCPCS: 36415; 36600; 71045; 73030; 80048; 80053; 80061; 82805; 83036; 83735; 83880; 84443; 84484; 85025; 85379; 85610; 85730; 93005; 93306; 93458; 96374; 97163; 99152; G0378; J1885; J2250; Q9967

== ENCOUNTER 2024-03-23 07:13 | Inpatient (IN) | payer OTHER, MEDICAID ==
[~2024-03-23] VITALS: Ht 154.9 cm; Wt 73.3 kg
[~2024-03-23 07:13] MED LIST changes: +AMLO1TAB23 PO; +ATOR-47 PO; -ATOR20TA50 PO; +DOXA1TAB28 PO; +EMPA1TAB PO; -ENAL5TAB22 PO; -FURO20TA3 PO; -MET25T PO; +OMEP1CAP70 PO; -POTA-215 PO; +RANO10003 PO; -ZOLP5TAB5 PO
[2024-03-23 09:08] LABS: Basophils # (auto) 0 10 ^3/uL (0-0.2); Basophils % (auto) 0.3 % (0.0-2.0); Eosinophils # (auto) 0.1 10 ^3/uL (0-0.8); Eosinophils % (auto) 2.2 % (0.0-7.0); Hematocrit 41.2 % (36.0-46.0); Hemoglobin 13.5 g/dL (12.2-16.2); Lymphocytes # (auto) 1.9 10 ^3/uL (0.4-5.4); Lymphocytes % (auto) 36.9 % (10.0-50.0); Mean Corpuscular Hemoglobin 29.2 pg (28.0-32.0); Mean Corpuscular Hgb Conc. 32.8 g/dL (32.0-36.0); Mean Corpuscular Volume 89.1 fL (80.0-100.0); Monocytes # (auto) 0.5 10 ^3/uL (0-1.3); Monocytes % (auto) 8.9 % (0.0-12.0); Neutrophils # (auto) 2.7 10 ^3/uL (1.6-8.6); Neutrophils % (auto) 51.7 % (37.0-80.0); Nucleated Red Blood Cells % 0.1 %; Red Blood Cells 4.62 10^6/uL (4.0-5.20); Red Cell Distribution Width 16.2 % (11.8-14.3); White Blood Cell 5.1 10^3/uL (4.4-10.8)
[2024-03-23 09:25] LABS: Chloride 110 mmol/L (98-107); Potassium 3.8 mmol/L (3.5-5.1); Sodium 141 mmol/L (136-145)
[2024-03-23 09:26] LABS: Anion Gap 3 (5-15); Carbon Dioxide 28 mmol/L (20-30)
[2024-03-23 09:27] LABS: Calcium 9.2 mg/dL (8.5-10.1)
[2024-03-23 09:32] LABS: Blood Urea Nitrogen 26 mg/dL (9-23); Glucose 111 mg/dL (74-106)
[2024-03-23 09:32] LABS: Urine Bacteria None Seen /hpf (None Seen)
[2024-03-23 09:54] LABS: Urine Blood Negative /uL (Negative); Urine Clarity Clear (Clear); Urine Color Light-Yellow (Yellow); Urine Protein, UAD TRACE (Negative); Urine Specific Gravity 1.029 (1.001-1.035); Urine Urobilinogen Normal (Negative); Urine WBC 1 /hpf (0 - 5); Urine pH 5.5 (5.0-9.0)
[2024-03-23 10:48] VITALS: PULSE 61; RESP 18; O2SAT 96
[2024-03-23] MEDS: MORPHINE SULFATE INJ 2 MG/ml SYRG IV ONE (13:21)
[2024-03-23] MEDS: ONDANSETRON HCL 4 MG/2 ML VIAL IV ONE (13:22)
[2024-03-23] MEDS ORDERED: DOCUSATE SOD 100 MG CAP PO PRN (15:30)
[2024-03-23] MEDS ORDERED: MORPHINE SULFATE INJ 2 MG/ml SYRG IV PRN (15:30)
[2024-03-23] MEDS ORDERED: ONDANSETRON HCL 4 MG/2 ML VIAL IV PRN (15:30)
[2024-03-23] MEDS: DICYCLOMINE HCL (10MG/ML) 2 ML AMPULE IM ONE (17:37)
[2024-03-23 18:25] VITALS: PULSE 53; RESP 18; O2SAT 92
[2024-03-23 18:34] VITALS: BP 125/49; PULSE 53; RESP 18; TEMP 97.4; O2SAT 92
[2024-03-23] MEDS: DICYCLOMINE HCL 10 MG CAP PO SCH (19:29)
[2024-03-23 21:00] VITALS: BP 115/49; PULSE 50; RESP 18; TEMP 98.1; O2SAT 98
[2024-03-23] MEDS: ATORVASTATIN 20 MG TAB PO SCH (21:30)
[2024-03-23] MEDS: RANOLAZINE ER 500 MG TAB PO SCH (21:33)
[2024-03-23] MEDS ORDERED: PATIENTS OWN MEDICATION (Ranolazine (Ranolazine ER) 1 TAB) PO SCH (22:00)
[2024-03-23] MEDS: HYDROcodone-ACET 5/325MG TAB PO ONE (23:05)
[2024-03-24] VITALS (8 sets, daily range): BP systolic 91–123; BP diastolic 43–55; PULSE 49–55; RESP 16–20; TEMP 97.4–98; O2SAT 94–97
[2024-03-24] MEDS: LEVOTHYROXINE SODIUM 50 MCG TAB PO SCH (06:11)
[2024-03-24 06:57] LABS: Alanine Aminotransferase 20 U/L (7-40); Albumin 3.7 g/dL (3.2-4.8); Alkaline Phosphatase 119 U/L (46-116); Anion Gap 6 (5-15); Aspartate Aminotransferase 15 U/L (13-40); BUN/Creatinine Ratio 23.7 (10.0-20.0); Bilirubin, Total 0.4 mg/dL (0.2-1.0); Blood Urea Nitrogen 23 mg/dL (9-23); Calcium 8.8 mg/dL (8.5-10.1); Carbon Dioxide 24 mmol/L (20-30); Chloride 108 mmol/L (98-107); Glucose 102 mg/dL (74-106); Potassium 3.9 mmol/L (3.5-5.1); Sodium 138 mmol/L (136-145); Total Protein 5.9 g/dL (5.7-8.2)
[2024-03-24 07:22] LABS: Basophils # (auto) 0 10 ^3/uL (0-0.2); Basophils % (auto) 0.4 % (0.0-2.0); Eosinophils # (auto) 0.1 10 ^3/uL (0-0.8); Eosinophils % (auto) 3.1 % (0.0-7.0); Hematocrit 37.2 % (36.0-46.0); Hemoglobin 12.2 g/dL (12.2-16.2); Lymphocytes % (auto) 44.4 % (10.0-50.0); Mean Corpuscular Hemoglobin 29.5 pg (28.0-32.0); Mean Corpuscular Hgb Conc. 32.8 g/dL (32.0-36.0); Mean Corpuscular Volume 89.8 fL (80.0-100.0); Monocytes # (auto) 0.4 10 ^3/uL (0-1.3); Monocytes % (auto) 9.2 % (0.0-12.0); Neutrophils # (auto) 1.9 10 ^3/uL (1.6-8.6); Neutrophils % (auto) 42.9 % (37.0-80.0); Nucleated Red Blood Cells % 0.1 %; Red Blood Cells 4.15 10^6/uL (4.0-5.20); Red Cell Distribution Width 15.4 % (11.8-14.3); White Blood Cell 4.5 10^3/uL (4.4-10.8)
[2024-03-24] MEDS ORDERED: SPIR25TA8 PO (08:51)
[2024-03-24] MEDS ORDERED: ATOR40TA52 PO (08:51)
[2024-03-24] MEDS ORDERED: ATEN-60 PO (08:51)
[2024-03-24] MEDS ORDERED: OMEP20TA PO (08:53)
[2024-03-24] MEDS ORDERED: FURO20TA3 PO (08:53)
[2024-03-24] MEDS ORDERED: PATIENTS OWN MEDICATION (Amlodipine Besylate 1 TAB) PO SCH (10:00)
[2024-03-24] MEDS ORDERED: DOXAZOSIN MESYLATE PO SCH (10:00)
[2024-03-24] MEDS ORDERED: PATIENTS OWN MEDICATION (Atorvastatin Calcium 1 TAB) PO SCH (10:00)
[2024-03-24] MEDS ORDERED: PATIENTS OWN MEDICATION (Omeprazole (Omeprazole Dr) 1 CAP) PO SCH (10:00)
[2024-03-24] MEDS: amLODIPine BESYLATE 5 MG TAB PO SCH (10:21)
[2024-03-24] MEDS: EMPAGLIFLOZIN 10 MG TAB PO SCH (10:21)
[2024-03-24] MEDS: SACUBITRIL-VALSARTAN 24mg/26mg TAB PO SCH (10:22)
[2024-03-24] MEDS: DOXAZOSIN MESYL 2 MG TAB PO SCH (10:22)
[2024-03-24] MEDS: PANTOPRAZOLE 40 MG TAB PO SCH (10:22)
[2024-03-24] MEDS: ASPirin 81 mg TAB PO SCH (10:23)
[2024-03-24] MEDS ORDERED: HYDROcodone-ACET 5/325MG TAB PO PRN (13:45)
[2024-03-25 01:00] VITALS: BP 102/47; PULSE 65; RESP 18; TEMP 97.5; O2SAT 100
[2024-03-25 05:00] VITALS: BP 124/54; PULSE 53; RESP 17; TEMP 97.3; O2SAT 95
[2024-03-25 08:00] VITALS: RESP 20
[2024-03-25 08:58] VITALS: BP 127/62; PULSE 53; RESP 18; TEMP 97.5; O2SAT 91
[2024-03-25 13:00] VITALS: BP 102/40; PULSE 54; RESP 16; TEMP 97.6; O2SAT 93
[2024-03-25] MEDS ORDERED: CEPH250C PO (14:06)
[2024-03-25 16:41] VITALS: BP 102/40; PULSE 54; RESP 16; TEMP 97.6; O2SAT 93
== END 2024-03-25 17:54 | disposition home or self-care (01) | DRG 690 ==
LOC: ER 07:13 → OVERFLOW 16:55 → EAST 18:15
PROVIDERS: ADMIT Nurse Practitioner Family; ATTEND Internal Medicine
DX: N30.00 Acute cystitis without hematuria (principal); K57.30 Diverticulosis of large intestine without perforation or abscess without bleeding; K59.00 Constipation, unspecified; E03.9 Hypothyroidism, unspecified; E78.5 Hyperlipidemia, unspecified; I11.0 Hypertensive heart disease with heart failure; I50.9 Heart failure, unspecified; Z90.49 Acquired absence of other specified parts of digestive tract; Z87.440 Personal history of urinary (tract) infections; Z88.1 Allergy status to other antibiotic agents; Z88.2 Allergy status to sulfonamides; Z79.82 Long term (current) use of aspirin; Z79.899 Other long term (current) drug therapy; Z88.3 Allergy status to other anti-infective agents
CPT/HCPCS: 36415; 74176; 80048; 80053; 81001; 85025; 93005; 96372; 96374; 96375; G0378; J2405

== ENCOUNTER 2024-12-10 10:46 | Inpatient (IN) | payer OTHER, MEDICAID ==
[~2024-12-10] VITALS: Ht 157.5 cm; Wt 72.0 kg
[~2024-12-10 10:46] MED LIST changes: +ATEN-60 PO; -ATOR-47 PO; +ATOR40TA52 PO; +CEPH250C PO; +FURO20TA3 PO; -LEV50T PO; +LEVO-848 PO; +OMEP20TA PO; +SPIR25TA8 PO
--- NOTE | 2024-12-10 11:09 | ED.PDOC ---
HPI Comments 74Y F with PMHx CHF, HTN, HLD, thyroid disease, and asthma presents to ED for chief complaint intermittent chest pain x2days. Additional symptoms include lightheadedness, dizziness, SOB, and urinary frequency. Pt states chest pain is right-sided, non radiating, and is described as stabbing. First episode of chest pain began 2 days ago after an argument with her . Second episode of chest pain began today at approximately 0600 after another argument with her . Pt is unsure if she is taking a blood thinner. Pt is being f/u by phytochemistry professor Dr. Coombs. Pt does not have an inhaler at home. Chief Complaint: Chest Pain Time Seen by MD: 10:55 Primary Care Provider: Unknown Reviewed Notes: Nurses Notes, Medications, Allergies Allergies: Coded Allergies: Sulfamethoxazole w/Trimethoprim (Verified Allergy, Unknown, 01/15/22) Home Meds Active Scripts Empagliflozin (Jardiance) 10 Mg Tab, 10 MG PO DAILY, #90 TAB Prov:ROMINA MERAZ MD 02/18/24 Levothyroxine Sodium (SYNTHROID TABLET) 50 Mcg Tb, 50 MCG PO QAM for 30 Days, #30 TAB Prov:PORSCHE RUSH MD 03/09/20 Aspirin (Asa) 81 Mg Ch, 81 MG PO DAILY for 100 Days, #100 TAB Prov:PORSCHE RUSH MD 03/09/20 Reported Medications Gabapentin (Gabapentin) 100 Mg Cap 12/10/24 Furosemide (Furosemide) 20 Mg Tab, 1 TAB PO DAILY, #90 TAB 1 Refill 03/24/24 Atenolol (Atenolol) 25 Mg Tab, 25 MG PO DAILY for 30 Days, MG 03/24/24 Spironolactone (Spironolactone) 25 Mg Tab, 1 TAB PO DAILY, #90 TAB 1 Refill 03/24/24 Atorvastatin Calcium (ATORVASTATIN CALCIUM) 40 Mg Tab, 1 TAB PO DAILY, #30 TAB 5 Refills 03/24/24 Sacubitril-Valsartan (Entresto 24-26 mg) 1 Tab Tab, 1 TAB PO DAILY 02/17/24 Doxazosin Mesylate (Doxazosin Mesylate) 1 Mg Tab, 1 TAB PO DAILY 02/15/24 Omeprazole (Omeprazole Dr) 20 Mg Cap, 1 CAP PO DAILY 02/15/24 Ranolazine (Ranolazine ER) 1,000 Mg Tab, 1 TAB PO BID 02/15/24 Amlodipine Besylate (Amlodipine Besylate) 10 Mg Tab, 1 TAB PO DAILY 02/15/24 Information Source: Patient Mode of Arrival: Wheelchair Severity: Mild Timing: Days Duration: Intermittent Prehospital treatment: None Location: Chest (R) Radiation: No Radiation Quality: Stabbing Onset: Other Cardiac Risk Factors: Hyperlipidemia, HTN PE Risk Factors: None History of: Similar pain in past Modifying Factors: Nothing Associated Signs and Symptoms: SOB, Other Past Medical History PAST MEDICAL HISTORY: Asthma, CHF, High Lipids, HTN, Thyroid, UTI'S Surgical History: Appendectomy, BTL, Cholecystectomy, Tonsillectomy DOCUMENT EXAMINER History: Denies all DOCUMENT EXAMINER Hx Family History Family History: Reviewed,noncontributory to illness, No family hx of DM, No family hx of HTN Social History Smoker: Non-Smoker Alcohol: Denies ETOH Use Drugs: Denies Drug Use Lives In: Home Constitutional: denies: chills, diaphoresis, fatigue, fever, malaise, sweats, weakness, others EENTM: denies: blurred vision, double vision, ear bleeding, ear discharge, ear drainage, ear pain, ear ringing, eye pain, eye redness, hearing loss, mouth pain, mouth swelling, nasal discharge, nose bleeding, nose congestion, nose pain, photophobia, tearing, throat pain, throat swelling, voice changes, others Respiratory: reports: shortness of breath; denies: cough, hemoptysis, orthopnea, SOB at rest, SOB with excertion, stridor, wheezing, others Cardiovascular: reports: chest pain, lightheadedness; denies: dizzy spells, diaphoresis, Dyspnea on exertion, edema, irregular heart beat, left arm pain, palpitations, PND, syncope, others Gastrointestinal: denies: abdomen distended, abdominal pain, blood streaked b owels, constipated, diarrhea, dysphagia, difficulty swallowing, hematemesis, melena, nausea, poor appetite, poor fluid intake, rectal bleeding, rectal pain, vomiting, others Genitourinary: reports: frequency; denies: abnormal vagina bleeding, burning, dyspareunia, dysuria, flank pain, hematuria, incontinence, pain, , vagina discharge, urgency, others Neurological: reports: dizziness; denies: fainting, headache, left sided numbness, left sided weakness, numbness, paresthesia, pre-existing deficit, right sided numbness, right sided weakness, seizure, speech problems, tingling, tremors, weakness, others Musculoskeletal: denies: back pain, gout, joint pain, joint swelling, muscle pain, muscle stiffness, neck pain, others Integumetry: denies: bruises, change in color, change in hair/nails, dryness, laceration, lesions, lumps, rash, wounds, others Allergic/Immunocompromised: denies: Difficulty Healing, Frequent Infections, Hives, Itching, others Hematologic/Lymphatic: denies: anemia, blood clots, easy bleeding, easy bruising, swollen glands, others Endocrine: denies: excessive hunger, excessive sweating, excessive thirst, excessive urination, flushing, intolerance to cold, intolerance to heat, unexplained weight gain, unexplained weight loss, others Psychiatric: reports: anxiety; denies: bipolar disorder, depression, hopeless, panic disorder, schizophrenia, sleepless, suicidal, others All Other Systems: Reviewed and Negative Physical Exam General Appearance: No Apparent Distress HEENT: Other (Pupils and face symmetric. Moist mucous membranes) Neck: Full Range of Motion, Normal Inspection Respiratory: Chest Non-Tender, Lungs Clear, No Accessory Muscle Use, No Respiratory Distress, Normal Breath Sounds Cardiovascular: No Edema, No JVD, Regular Rate/Rhythm Breast Exam: Deferred Gastrointestinal: Non Tender, Soft Genitalia: Deferred Pelvic: Deferred Rectal: Deferred Extremities: No calf tenderness, Normal inspection, Normal range of motion, Non-tender, No pedal edema Musculoskeletal : Apperance: Normal Neurologic: Alert (Oriented x4), Normal Affect, Normal Mood, Other (Ambulatory. No gross focal deficit.) Cerebellar Function: NOT DONE Reflexes: NOT DONE Skin: Dry, Normal Color, Warm Lymphatic: NOT DONE EKG EKG : Comments Sinus rhythm, rate 54, normal intervals, left axis deviation, LVH, possible old anteroseptal infarct, no ST/T changes. Was a procedure done? Was a procedure done?: No CP Differential Dx Differential Diagnosis: Angina, Anxiety / Panic Attack, Electrolyte Disorder, Heart Failure, LA Differential Diagnosis: CHF Differential Diagnosis: Angina, Chest Wall Pain, Esophageal reflux/spasm, Gastritis, Pericarditis X-Ray, Labs, Meds, VS Vital Signs Date Time Temp Pulse Resp B/P (MAP) Pulse Ox O2 Delivery O2 Flow Rate FiO2 12/10/24 11:28 51 18 94/56 (69) 98 12/10/24 11:28 51 18 98 Room Air 12/10/24 11:26 18 100 Room Air* 0 21 12/10/24 11:15 97.2 57 22 111/54 (73) 99 12/10/24 10:53 54 Lab Test 12/10/24 12:00 12/10/24 11:51 12/10/24 10:56 Range/Units Urine Color Colorless Yellow Urine Clarity Clear Clear Urine pH 6.5 5.0-9.0 Urine Specific [place] 1.007 1.001-1.035 Urine Protein Negative Negative Urine Ketones Negative Negative Urine Blood Negative Negative /uL Urine Nitrite Negative Negative Urine Bilirubin Negative Negative Urine Urobilinogen Normal Negative mg/dL Urine Leukocyte Esterase Negative Negative /uL Urine RBC <1 0 - 4 /hpf Urine Microscopic WBC < 1 0-5 /HPF Urine Squamous Epithelial Cells Few <5 /hpf Urine Bacteria None seen None Seen /hpf Urine Glucose 3+ H Normal mg/dL Urine Opiates Screen Neg NEGATIVE Urine Fentanyl Screen Neg NEGATIVE Urine Barbiturates Screen Neg NEGATIVE Urine Phencyclidine Screen Neg NEGATIVE Urine Amphetamines Screen Neg NEGATIVE Urine Benzodiazepines Screen Neg NEGATIVE Urine Cocaine Screen Neg NEGATIVE Urine Cannabinoids Screen Neg NEGATIVE Troponin I High Sensitivity 4 4 </=34 ng/L White Blood Count 6.9 4.4-10.8 10^3/uL Red Blood Count 5.19 4.0-5.20 10^6/uL Hemoglobin 15.5 12.2-16.2 g/dL Hematocrit 46.0 36.0-46.0 % Mean Corpuscular Volume 88.5 80.0-100.0 fL Mean Corpuscular Hemoglobin 29.9 28.0-32.0 pg Mean Corpuscular Hemoglobin Concent 33.8 32.0-36.0 g/dL Red Cell Distribution Width 14.5 H 11.8-14.3 % Platelet Count 185 140-450 10^3/uL Mean Platelet Volume 8.9 6.9-10.8 fL Neutrophils (%) (Auto) 53.3 37.0-80.0 % Lymphocytes (%) (Auto) 37.7 10.0-50.0 % Monocytes (%) (Auto) 7.9 0.0-12.0 % Eosinophils (%) (Auto) 1.0 0.0-7.0 % Basophils (%) (Auto) 0.1 0.0-2.0 % Neutrophils # (Auto) 3.7 1.6-8.6 10 ^3/uL Lymphocytes # (Auto) 2.6 0.4-5.4 10 ^3/uL Monocytes # (Auto) 0.5 0-1.3 10 ^3/uL Eosinophils # (Auto) 0.1 0-0.8 10 ^3/uL Basophils # (Auto) 0 0-0.2 10 ^3/uL Nucleated Red Blood Cells 0.1 % Sodium Level 137 136-145 mmol/L Potassium Level 4.0 3.5-5.1 mmol/L Chloride Level 103 98-107 mmol/L Carbon Dioxide Level 23 20-31 mmol/L Anion Gap 11 5-15 Blood Urea Nitrogen 24 H 9-23 mg/dL Creatinine 1.30 H 0.550-1.02 mg/dL Glomerular Filtration Rate Calc 44 >90 mL/min BUN/Creatinine Ratio 18.5 10.0-20.0 Serum Glucose 108 H 74-106 mg/dL Hemoglobin A1c 5.6 <5.7 % A1C Calcium Level 9.8 8.7-10.4 mg/dL B-Type Natriuretic Peptide 115.68 0-100 pg/mL Triglycerides Level 116 < 150 mg/dL Cholesterol Level 129 < 200 mg/dL LDL Cholesterol 62 < 100 mg/dL HDL Cholesterol 48 40-59 mg/dL Thyroid Stimulating Hormone (TSH) 1.63 0.55-4.78 uIU/mL Hepatitis B Surface Antigen Negative Negative Hepatitis C Antibody Negative Negative Current Medications Medications (Trade) Dose Ordered Sig/Travon Route Start Time Stop Time Status Last Admin Aspirin 325 mg ONCE ONCE PO 12/10/24 11:15 12/10/24 11:16 DC 12/10/24 11:28 Albuterol (Ventolin Medneb) 2.5 mg ONCE ONCE NEB 12/10/24 11:15 12/10/24 11:16 DC 12/10/24 11:26 Ipratropium Daniels (Atrovent Medneb) 0.5 mg ONCE ONCE NEB 12/10/24 11:15 12/10/24 11:16 DC 12/10/24 11:27 ORDERING PHYSICIAN: MARK TORRES MD PROCEDURE(s): CXRP - CHEST PORTABLE REASON: sob ORDER NUMBER(s): [id number], ACCESSION NUMBER(s): [id number] EXAM: XR Chest, 1 View CLINICAL INDICATION: sob TECHNIQUE: Frontal view of the chest. COMPARISON: XY CHEST PORTABLE on DOS: 02/15/24, CHEST PORTABLE on DOS: 11/08/21, CHEST PORTABLE on DOS: 03/11/20, CHEST PORTABLE on DOS: 03/08/20 FINDINGS: LUNGS AND PLEURAL SPACES: Unremarkable. No consolidation. No pneumothorax. HEART: Unremarkable. No cardiomegaly. MEDIASTINUM: Unremarkable. Normal mediastinal contour. BONES/JOINTS: Unremarkable. No acute fracture. OTHER FINDINGS: . None. IMPRESSION: No acute cardiopulmonary process. X-Ray, Labs, Meds, VS Comment 74Y F with PMHx CHF, HTN, HLD, thyroid disease, and asthma presents to ED for chief complaint intermittent chest pain x2days Vitals remarkable for heart rate 51, BP 94/56 Exam remarkable Rhythm strip independently interpreted by me: Sinus bradycardia, rate 54, no ectopy. Chest x-ray unremarkable CBC unremarkable, metabolic panel remarkable for BUN 24, creatinine 0.3, BNP and serial troponins unremarkable, UA unremarkable Patient treated with the following in the ED: Albuterol 2.5 mg with Atrovent 0.5 mg nebulized, aspirin 325 mg p.o. On re-evaluation, patient states symptoms have improved. Vitals were stable. Plan is to admit the patient for Cardiology evaluation. Time of 1ST Reevaluation: 11:25 Reevaluation 1ST: Unchanged Patient Education/Counseling: Diagnosis, Treatment Family Education/Counseling: No Family Present Departure 1 Departure Time of Disposition: 13:00 Impression: Primary Impression: Chest pain with high risk for cardiac etiology Additional Impression: Symptomatic bradycardia Disposition: ADMITTED INPATIENT Admit to: Tele Condition: Guarded Critical Care Note Critical Care Time?: No Stability Stability form required: No Heart Score Heart Score: Heart Score Response (Comments) Value History Moderate Suspicious 1 EKG Normal 0 Age >65 2 Risk Factors >3 or Hx ASHD 2 Troponin Normal limit 0 Total 5 I personally scribed for MARK TORRES MD ([facility]) on 12/10/24 at 11:09. Electronically submitted by Blanche Dawson ([facility]). I personally scribed for MARK TORRES MD ([facility]) on 12/10/24 at 11:11. Electronically submitted by Blanche Dawson ([facility]). I personally scribed for MARK [facility]RES MD ([facility] on 12/10/24 at 11:36. Electronically submitted by Blanche Dawson ([facility]). MARK TORRES MD Dec 10, 2024 11:09
[2024-12-10 11:20] LABS: Chloride 103 mmol/L (98-107); Sodium 137 mmol/L (136-145)
[2024-12-10 11:21] LABS: Anion Gap 11 (5-15); Basophils # (auto) 0 10 ^3/uL (0-0.2); Basophils % (auto) 0.1 % (0.0-2.0); Calcium 9.8 mg/dL (8.7-10.4); Carbon Dioxide 23 mmol/L (20-31); Eosinophils # (auto) 0.1 10 ^3/uL (0-0.8); Hemoglobin 15.5 g/dL (12.2-16.2); Lymphocytes # (auto) 2.6 10 ^3/uL (0.4-5.4); Lymphocytes % (auto) 37.7 % (10.0-50.0); Mean Corpuscular Hemoglobin 29.9 pg (28.0-32.0); Mean Corpuscular Hgb Conc. 33.8 g/dL (32.0-36.0); Mean Corpuscular Volume 88.5 fL (80.0-100.0); Monocytes # (auto) 0.5 10 ^3/uL (0-1.3); Monocytes % (auto) 7.9 % (0.0-12.0); Neutrophils # (auto) 3.7 10 ^3/uL (1.6-8.6); Neutrophils % (auto) 53.3 % (37.0-80.0); Nucleated Red Blood Cells % 0.1 %; Platelet Count (auto) 185 10^3/uL (140-450); Red Blood Cells 5.19 10^6/uL (4.0-5.20); Red Cell Distribution Width 14.5 % (11.8-14.3); White Blood Cell 6.9 10^3/uL (4.4-10.8)
[2024-12-10 11:26] LABS: BUN/Creatinine Ratio 18.5 (10.0-20.0)
[2024-12-10] MEDS: ALBUTEROL SULF 2.5 MG/0.5ML(0.5%) NEB SOLN NEB ONE (11:26)
[2024-12-10] MEDS: IPRATROPIUM BROM 0.5 MG/2.5ML INH SOL NEB ONE (11:27)
[2024-12-10] MEDS: ASPirin 325 MG TAB PO ONE (11:28)
--- NOTE | 2024-12-10 11:30 | DVH ---
EXAM: XR Chest, 1 View CLINICAL INDICATION: sob TECHNIQUE: Frontal view of the chest. COMPARISON: XY CHEST PORTABLE on DOS: 02/15/24, CHEST PORTABLE on DOS: 11/08/21, CHEST PORTABLE on DOS : 03/11/20, CHEST PORTABLE on DOS: 03/08/20 FINDINGS: LUNGS AND PLEURAL SPACES: Unremarkable. No consolidation. No pneumothorax. HEART: Unremarkable. No cardiomegaly. MEDIASTINUM: Unremarkable. Normal mediastinal contour. BONES/JOINTS: Unremarkable. No acute fracture. OTHER FINDINGS: . None. IMPRESSION: No acute cardiopulmonary process.
[2024-12-10 11:43] LABS: Blood Urea Nitrogen 24 mg/dL (9-23); Glucose 108 mg/dL (74-106)
[2024-12-10] MEDS: LORazepam 2MG/ML-1ML VIAL IV ONE (11:44)
[2024-12-10 13:05] LABS: Urine Bacteria None Seen /hpf (None Seen)
[2024-12-10] MEDS ORDERED: ACETAMINOPHEN 325 MG TAB PO PRN (13:15)
[2024-12-10] MEDS ORDERED: MORPHINE SULFATE 4 MG/ML SYR/VIAL IV PRN (13:15)
[2024-12-10] MEDS ORDERED: NITROGLYCERIN 0.4 MG SL TAB SL PRN (13:15)
[2024-12-10] MEDS ORDERED: ONDANSETRON HCL 4 MG/2 ML VIAL IV PRN (13:15)
[2024-12-10] MEDS ORDERED: MORPHINE SULFATE INJ 2 MG/ml SYRG IV PRN (13:15)
[2024-12-10 13:25] LABS: Urine Blood Negative /uL (Negative); Urine Clarity Clear (Clear); Urine Color Colorless (Yellow); Urine Protein, UAD Negative (Negative); Urine Specific Gravity 1.007 (1.001-1.035); Urine Squamous Epithelial Cell FEW /hpf (<5); Urine Urobilinogen Normal (Negative); Urine WBC < 1 /HPF (0-5); Urine pH 6.5 (5.0-9.0)
[2024-12-10] MEDS ORDERED: FURO20TA4 (13:33)
[2024-12-10] MEDS ORDERED: GAB100C (13:33)
--- NOTE | 2024-12-10 13:50 | DVHHP2 ---
History of Present Illness Reason for Visit: Chest pain History of Present Illness Yumi Pemberton is a 74-year-old female with past medical history of hypertension, hyperlipidemia, asthma, CHF, cardiomyopathy, hypothyroidism, frequent UTIs, cholecystectomy, appendectomy, bilateral tubal ligation, tonsillectomy, and bladder lift who presents to the ED with chest pain that radiates to her right breast x2 days. Patient reports that at the time the pain was 8/10 throbbing jabbing and constant in nature. She stated it happened right after she had an argument with her at home. Upon examination she currently states that her pain is 0. She also reported that she had some lightheadedness, shortness of breath, urinary frequency without dysuria or hematuria, and nausea. She reports that the nausea is relieved. She denies any abdominal pain, fever, chills, recent sick contacts, and recent trauma or injury. Patient reports that she has been having dizziness which is why she is currently using a wheelchair. However typically she can walk and ambulate without issues. Cardiovascular: CHF, HTN, hyperipidemia, Other (Cardiomyopathy) Pulmonary: Asthma Renal/: UTI Past Surgical History: Appendectomy, Cholecystectomy, Other (Bladder lift), Tubal Ligation, Tonsillectomy Family History: Cancer, DM, Other (Dad with stomach cancer and mom with diabetes) Smoke: No ALCOHOL: none Drugs: None Lives: with Family Domestic Violence: Neg Review of Systems Constitutional: Yes: Other (Dizziness and lightheadedness) Respiratory: Shortness of breath Gastrointestinal: Nausea Genitourinary: Frequency Allergies: Coded Allergies: Ciprofloxacin (Verified Allergy, Unknown, 01/15/22) Sulfamethoxazole w/Trimethoprim (Verified Allergy, Unknown, 01/15/22) Medications Current Medications Medications Dose Ordered Sig/Travon Route Start Time Stop Time Status Last Admin Dose Admin Morphine Sulfate 2 mg Q30MP PRN IV 12/10/24 13:15 UNV Acetaminophen 650 mg Q6HP PRN PO 12/10/24 13:15 UNV Ondansetron HCl 4 mg Q4HP PRN IV 12/10/24 13:15 UNV Nitroglycerin 0.4 mg Q5MINP PRN SL 12/10/24 13:15 UNV Morphine Sulfate 2 mg Q30M PRN IV 12/10/24 13:15 UNV Aspirin 81 mg DAILY PO 12/11/24 10:00 UNV Atenolol 25 mg DAILY PO 12/11/24 10:00 UNV Empaglifozin 10 mg DAILY PO 12/11/24 10:00 UNV Furosemide 20 mg DAILY PO 12/11/24 10:00 UNV Levothyroxine Sodium 50 mcg QAM PO 12/11/24 07:00 UNV Sacubitril/ Valsartan 1 tab DAILY PO 12/11/24 10:00 UNV Spironolactone 25 mg DAILY PO 12/11/24 10:00 UNV Patient Own Medication 1 tab DAILY PO 12/11/24 10:00 UNV Patient Own Medication 1 tab DAILY PO 12/11/24 10:00 UNV Patient Own Medication 1 tab DAILY PO 12/11/24 10:00 UNV Patient Own Medication 1 cap DAILY PO 12/11/24 10:00 UNV Patient Own Medication 1 tab BID PO 12/10/24 22:00 UNV Exam Vital Signs Vital Signs Date Time Temp Pulse Resp B/P (MAP) Pulse Ox O2 Delivery O2 Flow Rate FiO2 12/10/24 11:28 51 18 94/56 (69) 98 12/10/24 11:28 Room Air 12/10/24 11:26 0 21 12/10/24 11:15 97.2 General Appearance: Alert, Oriented X3, Cooperative, No acute distress HEENT: Atraumatic, PERRLA, EOMI, Mucous membr. moist/pink Respiratory: Clear to auscultation, Normal air movement Cardiovascular: Normal S1, Normal S2, No murmurs Abdominal: Normal bowel sounds, Soft, No tenderness, No hepatospenomegaly, No masses Extremities: No clubbing, No cyanosis, No edema, Normal pulses Skin: No rashes, No breakdown, No significant lesion Neuro: Normal speech, Normal tone, Sensation intact Psych/Mental Status: Mental status NL, Mood NL Labs/Xrays Labs Test 12/10/24 12:00 12/10/24 11:51 12/10/24 10:56 Range/Units Urine Color Colorless Yellow Urine Clarity Clear Clear Urine pH 6.5 5.0-9.0 Urine Specific [place] 1.007 1.001-1.035 Urine Protein Negative Negative Urine Ketones Negative Negative Urine Blood Negative Negative /uL Urine Nitrite Negative Negative Urine Bilirubin Negative Negative Urine Urobilinogen Normal Negative mg/dL Urine Leukocyte Esterase Negative Negative /uL Urine RBC <1 0 - 4 /hpf Urine Microscopic WBC < 1 0-5 /HPF Urine Squamous Epithelial Cells Few <5 /hpf Urine Bacteria None seen None Seen /hpf Urine Glucose 3+ H Normal mg/dL Troponin I High Sensitivity 4 </=34 ng/L White Blood Count 6.9 4.4-10.8 10^3/uL Red Blood Count 5.19 4.0-5.20 10^6/uL Hemoglobin 15.5 12.2-16.2 g/dL Hematocrit 46.0 36.0-46.0 % Mean Corpuscular Volume 88.5 80.0-100.0 fL Mean Corpuscular Hemoglobin 29.9 28.0-32.0 pg Mean Corpuscular Hemoglobin Concent 33.8 32.0-36.0 g/dL Red Cell Distribution Width 14.5 H 11.8-14.3 % Platelet Count 185 140-450 10^3/uL Mean Platelet Volume 8.9 6.9-10.8 fL Neutrophils (%) (Auto) 53.3 37.0-80.0 % Lymphocytes (%) (Auto) 37.7 10.0-50.0 % Monocytes (%) (Auto) 7.9 0.0-12.0 % Eosinophils (%) (Auto) 1.0 0.0-7.0 % Basophils (%) (Auto) 0.1 0.0-2.0 % Neutrophils # (Auto) 3.7 1.6-8.6 10 ^3/uL Lymphocytes # (Auto) 2.6 0.4-5.4 10 ^3/uL Monocytes # (Auto) 0.5 0-1.3 10 ^3/uL Eosinophils # (Auto) 0.1 0-0.8 10 ^3/uL Basophils # (Auto) 0 0-0.2 10 ^3/uL Nucleated Red Blood Cells 0.1 % Sodium Level 137 136-145 mmol/L Potassium Level 4.0 3.5-5.1 mmol/L Chloride Level 103 98-107 mmol/L Carbon Dioxide Level 23 20-31 mmol/L Anion Gap 11 5-15 Blood Urea Nitrogen 24 H 9-23 mg/dL Creatinine 1.30 H 0.550-1.02 mg/dL Glomerular Filtration Rate Calc 44 >90 mL/min BUN/Creatinine Ratio 18.5 10.0-20.0 Serum Glucose 108 H 74-106 mg/dL Calcium Level 9.8 8.7-10.4 mg/dL B-Type Natriuretic Peptide 115.68 0-100 pg/mL EXAM: XR Chest, 1 View CLINICAL INDICATION: sob TECHNIQUE: Frontal view of the chest. COMPARISON: XY CHEST PORTABLE on DOS: 02/15/24, CHEST PORTABLE on DOS: 11/08/21, CHEST PORTABLE on DOS: 03/11/20, CHEST PORTABLE on DOS: 03/08/20 FINDINGS: LUNGS AND PLEURAL SPACES: Unremarkable. No consolidation. No pneumothorax. HEART: Unremarkable. No cardiomegaly. MEDIASTINUM: Unremarkable. Normal mediastinal contour. BONES/JOINTS: Unremarkable. No acute fracture. OTHER FINDINGS: . None. IMPRESSION: No acute cardiopulmonary process. Assessment/Plan Assessment/Plan Assessment Chest pain Glucosuria DEEDEE Bradycardia History of hypertension History of hyperlipidemia History of hypothyroidism History of recurrent UTIs History of asthma History of CHF History of cardiomyopathy Plan Admit to tele UA Aspirin given ED Respiratory treatments Ativan given ED BNP Chest x-ray noted EKG Troponin negative x2 TSH Lipid panel UDS Hemoglobin A1c Echo ordered Last echo on 02/16/2024 EF 60% Consult cardiology Antiemetics Pain management Continue home medications Diet Plan discussed with: Patient My Orders Orders - ZOYA WHITMORE Procedure Category Date Status Time Thyroid Stimulating LAB 12/10/24 Logged Hormone 13:10 Lipid Panel LAB 12/10/24 Logged 13:10 Drug Screen LAB 12/10/24 Logged 13:10 Echo 2d Mode Cardiac US 12/10/24 Logged DOP 13:10 Admit ADMIT 12/10/24 Transmitted 13:10 Code Status CODE 12/10/24 Transmitted 13:10 Benzene Operator DOMINIC 12/10/24 In Process 13:10 Cardiac DIET 12/10/24 Transmitted Diet-2gna,Lofat,Lochol Lunch Morphine Sulfate PHA 12/10/24 Logged Injection 13:15 Acetaminophen Tablet PHA 12/10/24 Logged (Tylenol Tablet) 13:15 Complete Blood Count LAB 12/11/24 Verified 04:00 Basic Metabolic Panel LAB 12/11/24 Verified 04:00 Magnesium LAB 12/11/24 Verified 04:00 Ondansetron Hcl PHA 12/10/24 Logged (Zofran) 13:15 Electrocardigram EKG 12/11/24 Logged 04:00 Troponin-I Hs LAB 12/10/24 Logged 13:10 Cardiac DOMINIC 12/10/24 In Process Rehabilitation - Outpa Nitroglycerin PHA 12/10/24 Logged Sublingual (Ntrostat 13:15 Morphine Sulfate PHA 12/10/24 Logged Injection 13:15 Stat Ekg For Chest [facility] 12/10/24 In Process Pain 13:10 Notify Of Changes [facility] 12/10/24 In Process From Base 13:10 Cistern Room Working Supervisor For [facility] 12/10/24 In Process 24 Hours 13:10 Emergency Dysrhythmia [facility] 12/10/24 In Process Protocol 13:10 Rhythm Strips Once [facility] 12/10/24 In Process Every Shift 13:10 Oxygen By Nasal RT 12/10/24 Transmitted Cannula 13:10 Aspirin Tablet PHA 12/11/24 Logged 10:00 Atenolol Tablet PHA 12/11/24 Logged (Tenormin Tablet) 10:00 Empagliflozin PHA 12/11/24 Logged (Jardiance) 10:00 Furosemide Tablet PHA 12/11/24 Logged (Lasix Tablet) 10:00 Levothyroxine Tablet PHA 12/11/24 Logged (Synthroid Tablet) 07:00 Sacubitril-Valsartan PHA 12/11/24 Logged (Entresto 24-26 Mg 10:00 Spironolactone PHA 12/11/24 Logged (Aldactone) 10:00 (Nf) Amlodipine PHA 12/11/24 Logged Besylate 10:00 (Nf) Atorvastatin PHA 12/11/24 Logged Calcium 10:00 (Nf) Doxazosin PHA 12/11/24 Logged Mesylate 10:00 (Nf) Omeprazole PHA 12/11/24 Logged (Omeprazole Dr) 10:00 (Nf) Ranolazine PHA 12/10/24 Logged (Ranolazine Er) 22:00 Hemoglobin A1c LAB 12/10/24 Logged 13:34 * Cardiology Consult CONS 12/10/24 Transmitted 13:35 Date of Service: Dec 10, 2024 Billing Provider: ZOYA WHITMORE Common Visit Codes: [id number] INP/OBS CARE (HIGH) ZOYA WHITMORE Dec 10, 2024 13:50
[2024-12-10 14:33] LABS: Triglycerides 116 mg/dL (< 150)
[2024-12-10 14:34] LABS: LDL Cholesterol 62 mg/dL (< 100)
[2024-12-10 14:35] LABS: Cholesterol 129 mg/dL (< 200); HDL Cholesterol 48 mg/dL (40-59)
[2024-12-10 15:55] VITALS: BP 105/47; PULSE 47; RESP 16; TEMP 97.4; O2SAT 99
[2024-12-10 16:08] VITALS: BP 105/47; PULSE 47; RESP 16; TEMP 97.4; O2SAT 99
[2024-12-10 16:21] LABS: Amphetamine Screen, Urine Neg (NEGATIVE); Barbiturate Scree,Urine Neg (NEGATIVE); Benzodiazephine Screen, Urine Neg (NEGATIVE); Cannabinoid Screen, Urine Neg (NEGATIVE); Cocaine Screen, Urine Neg (NEGATIVE); Opiate Scree,Urine Neg (NEGATIVE); Phencyclidine Screen, Urine Neg (NEGATIVE)
--- NOTE | 2024-12-10 17:07 | DVHINCON2 ---
Date Seen: Dec 10, 2024 Referring Physician KATELYN Mckeon Reason for Consultation Chest pain History of Present Illness This is a 74-year-old female who presented to the emergency room with a chief complaint of chest pain after arguing with her . Describes her chest pain right-sided, intermittent, sharp in nature, and non-radiating. There was no twelve lead ECG on file. Serial troponin levels are negative. Follows up in the outpatient setting with Dr. Coombs who discontinued spironolactone secondary to hyperkalemia. She was also discontinued from beta-disha therapy in the past given a sinus bradycardia rhythm. Significant medical history includes congestive heart failure, hypertension, dyslipidemia, thyroid disease, and obesity. Past Medical History Past medical history reviewed. No other significant than mentioned above. Past Surgical History Cholecystectomy Appendectomy Family History: Alcoholism Cardiovascular disease G8 FATHER Diabetes mellitus G8 MOTHER Hypertension G8 FATHER Family History Family history reviewed. Father at 88 y.o from a massive myocardial infarction. Social History Denies the use of illicit drugs, alcohol, or tobacco use. Allergies: Coded Allergies: Sulfamethoxazole w/Trimethoprim (Verified Allergy, Unknown, 01/15/22) Home Meds Active Scripts Empagliflozin (Jardiance) 10 Mg Tab, 10 MG PO DAILY, #90 TAB Prov:ROMINA MERAZ MD 02/18/24 Levothyroxine Sodium (SYNTHROID TABLET) 50 Mcg Tb, 50 MCG PO QAM for 30 Days, #30 TAB Prov:PORSCHE RUSH MD 03/09/20 Aspirin (Asa) 81 Mg Ch, 81 MG PO DAILY for 100 Days, #100 TAB Prov:PORSCHE RUSH MD 03/09/20 Reported Medications Gabapentin (Gabapentin) 100 Mg Cap 12/10/24 Furosemide (Furosemide) 20 Mg Tab, 1 TAB PO DAILY, #90 TAB 1 Refill 03/24/24 Atenolol (Atenolol) 25 Mg Tab, 25 MG PO DAILY for 30 Days, MG 03/24/24 Spironolactone (Spironolactone) 25 Mg Tab, 1 TAB PO DAILY, #90 TAB 1 Refill 03/24/24 Atorvastatin Calcium (ATORVASTATIN CALCIUM) 40 Mg Tab, 1 TAB PO DAILY, #30 TAB 5 Refills 03/24/24 Sacubitril-Valsartan (Entresto 24-26 mg) 1 Tab Tab, 1 TAB PO DAILY 02/17/24 Doxazosin Mesylate (Doxazosin Mesylate) 1 Mg Tab, 1 TAB PO DAILY 02/15/24 Omeprazole (Omeprazole Dr) 20 Mg Cap, 1 CAP PO DAILY 02/15/24 Ranolazine (Ranolazine ER) 1,000 Mg Tab, 1 TAB PO BID 02/15/24 Amlodipine Besylate (Amlodipine Besylate) 10 Mg Tab, 1 TAB PO DAILY 02/15/24 Home Meds Home medications reviewed. Current Medications Current Medications Medications (Trade) Dose Ordered Sig/Travon Route PRN Reason Start Time Stop Time Status Last Admin Morphine Sulfate 2 mg Q30MP PRN IV FOR CHEST PAIN 12/10/24 13:15 12/10/24 13:38 DC Acetaminophen (Tylenol Tablet) 650 mg Q6HP PRN PO MILD PAIN (1-3 PAIN SCALE) 12/10/24 13:15 Ondansetron HCl (Zofran) 4 mg Q4HP PRN IV NAUSEA / VOMITING 12/10/24 13:15 Nitroglycerin (Ntrostat Sublingual) 0.4 mg Q5MINP PRN SL FOR CHEST PAIN 12/10/24 13:15 Morphine Sulfate 2 mg Q30M PRN IV FOR CHEST PAIN 12/10/24 13:15 Aspirin 81 mg DAILY PO 12/11/24 10:00 Atenolol (Tenormin Tablet) 25 mg DAILY PO 12/11/24 10:00 Empaglifozin (Jardiance) 10 mg DAILY PO 12/11/24 10:00 Furosemide (Lasix Tablet) 20 mg DAILY PO 12/11/24 10:00 Levothyroxine Sodium (Synthroid Tablet) 50 mcg QAM PO 12/11/24 07:00 Sacubitril/ Valsartan (Entresto 24-26 Mg tab) 1 tab DAILY PO 12/11/24 10:00 Spironolactone (Aldactone) 25 mg DAILY PO 12/11/24 10:00 Amlodipine Besylate (Norvasc Tablet) 10 mg DAILY PO 12/11/24 10:00 Atorvastatin Calcium (Lipitor) 40 mg HS PO 12/10/24 22:00 Doxazosin Mesylate (Cardura Tablet) 1 mg DAILY PO 12/11/24 10:00 Pantoprazole Sodium (Protonix Tablet) 40 mg DAILY@0700 PO 12/11/24 07:00 Ranolazine (Ranexa ER) 1,000 mg BID PO 12/10/24 22:00 Review of Systems Constitutional: No symptom reported Ears, Nose, & Throat: No symptom reported Eyes: No symptom reported Neurological: No symptoms reported Pulmonary/Respiratory: No symptom reported Cardiovascular: Chest pain Gastrointestinal: No symptom reported Genitourinary: No symptom reported Musculoskeletal: No symptom reported Skin: No symptom reported Psychiatric: No symptom reported Endocrine: No symptom reported Hemotologic/Lymphatic: No symptom reported Vital Signs Vital Signs Date Time Temp Pulse Resp B/P (MAP) Pulse Ox O2 Delivery O2 Flow Rate FiO2 12/10/24 15:55 97.4 47 16 105/47 (66) 99 97.4 12/10/24 11:28 Room Air 12/10/24 11:26 0 21 Physical Exam General Appearance: Cooperative. Well developed. Well nourished. In no acute distress Head Exam: Normal inspection Neck Exam: Normal inspection. Non-tender. Normal alignment Pulmonary/Respiratory: Chest non-tender. Clear bilateral breath sounds Cardiovascular/Chest: Regular rate and rhythm. S1, S2. No murmurs. No JVD. Peripheral Pulses: 2+ Radial (R). 2+ Radial (L). 2+ Pedal (R). 2+ Pedal (L) Abdominal Exam: Normal bowel sounds. Soft. Nontender. No hepatospenomegaly. No masses Ankle Exam: Negative ankle edema Lower extremities: Negative lower extremity edema Neuro/Mental Status: A&O x4. Coherent Thoughts/Psych: Normal thought pattern. Appropriate mood and affect. Good judgement and insight Appearance: In no acute distress Skin Exam: Normal inspection. Normal color. Warm. Dry Labs/Diagnostic Data Labs Test 12/10/24 13:55 12/10/24 12:00 12/10/24 10:56 Range/Units Troponin I High Sensitivity 5 </=34 ng/L Urine Color Colorless Yellow Urine Clarity Clear Clear Urine pH 6.5 5.0-9.0 Urine Specific [place] 1.007 1.001-1.035 Urine Protein Negative Negative Urine Ketones Negative Negative Urine Blood Negative Negative /uL Urine Nitrite Negative Negative Urine Bilirubin Negative Negative Urine Urobilinogen Normal Negative mg/dL Urine Leukocyte Esterase Negative Negative /uL Urine RBC <1 0 - 4 /hpf Urine Microscopic WBC < 1 0-5 /HPF Urine Squamous Epithelial Cells Few <5 /hpf Urine Bacteria None seen None Seen /hpf Urine Glucose 3+ H Normal mg/dL Urine Opiates Screen Neg NEGATIVE Urine Fentanyl Screen Neg NEGATIVE Urine Barbiturates Screen Neg NEGATIVE Urine Phencyclidine Screen Neg NEGATIVE Urine Amphetamines Screen Neg NEGATIVE Urine Benzodiazepines Screen Neg NEGATIVE Urine Cocaine Screen Neg NEGATIVE Urine Cannabinoids Screen Neg NEGATIVE White Blood Count 6.9 4.4-10.8 10^3/uL Red Blood Count 5.19 4.0-5.20 10^6/uL Hemoglobin 15.5 12.2-16.2 g/dL Hematocrit 46.0 36.0-46.0 % Mean Corpuscular Volume 88.5 80.0-100.0 fL Mean Corpuscular Hemoglobin 29.9 28.0-32.0 pg Mean Corpuscular Hemoglobin Concent 33.8 32.0-36.0 g/dL Red Cell Distribution Width 14.5 H 11.8-14.3 % Platelet Count 185 140-450 10^3/uL Mean Platelet Volume 8.9 6.9-10.8 fL Neutrophils (%) (Auto) 53.3 37.0-80.0 % Lymphocytes (%) (Auto) 37.7 10.0-50.0 % Monocytes (%) (Auto) 7.9 0.0-12.0 % Eosinophils (%) (Auto) 1.0 0.0-7.0 % Basophils (%) (Auto) 0.1 0.0-2.0 % Neutrophils # (Auto) 3.7 1.6-8.6 10 ^3/uL Lymphocytes # (Auto) 2.6 0.4-5.4 10 ^3/uL Monocytes # (Auto) 0.5 0-1.3 10 ^3/uL Eosinophils # (Auto) 0.1 0-0.8 10 ^3/uL Basophils # (Auto) 0 0-0.2 10 ^3/uL Nucleated Red Blood Cells 0.1 % Sodium Level 137 136-145 mmol/L Potassium Level 4.0 3.5-5.1 mmol/L Chloride Level 103 98-107 mmol/L Carbon Dioxide Level 23 20-31 mmol/L Anion Gap 11 5-15 Blood Urea Nitrogen 24 H 9-23 mg/dL Creatinine 1.30 H 0.550-1.02 mg/dL Glomerular Filtration Rate Calc 44 >90 mL/min BUN/Creatinine Ratio 18.5 10.0-20.0 Serum Glucose 108 H 74-106 mg/dL Hemoglobin A1c 5.6 <5.7 % A1C Calcium Level 9.8 8.7-10.4 mg/dL B-Type Natriuretic Peptide 115.68 0-100 pg/mL Triglycerides Level 116 < 150 mg/dL Cholesterol Level 129 < 200 mg/dL LDL Cholesterol 62 < 100 mg/dL HDL Cholesterol 48 40-59 mg/dL Thyroid Stimulating Hormone (TSH) 1.63 0.55-4.78 uIU/mL Assessment Non-cardiac chest pain Moderate non-obstructive CAD with sluggish flow Hx of non-ischemic HFrEF now HFrecEF of 60% Sinus bradycardia, off beta-blockers Hypertension Dyslipidemia Thyroid disease Obesity Plan/Recommendation (Dr. Coombs) Echocardiogram from 02/16/2024 revealed EF 60%. Coronary angiogram with cardiac catheterization from 02/17/2024 revealed moderate nonobstructive coronary artery disease with sluggish flow from the left coronary system with recommendations for medical therapy. Continue GDMT for CHF. Initiate vasodilators with optimal BP. Hold spironolactone given history of hyperkalemia. Hold AV patricia blocking agents given persistent asymptomatic sinus bradycardia. Follow-up with Dr. Coombs as scheduled. There is no further cardiac work-up indicated at this time. Kindly call if you need to re-consult. Thank you for allowing us to participate in this patient's care. This medical document was created using an electronic medical record system with voice recognition software and computerized dictation system. Although this document has been carefully reviewed, there might still be some phonetic and typographical errors. Occasional wrong-word or ``sound-alike substitutions may have occurred due to the inherent limitations of voice recognition software. These areas are purely typographical due to imperfections of the software programs and do not reflect any compromise in the patient's medical care. Please read the chart carefully and recognize, using context, where these substitutions have occurred. Plan discussed with: Patient, Other NYHA Physical activity limitations: NA Date of Service: Dec 10, 2024 Billing Provider: MAYKEL KEMP Cardiology Common Codes: [id number] INP/OBS CARE (High) MAYKEL KEMP Dec 10, 2024 17:07
[2024-12-10 18:00] VITALS: BP 100/54; PULSE 43; RESP 16; TEMP 97.8; O2SAT 99
--- NOTE | 2024-12-10 18:18 | ECG ---
[facility] Test Date: 2024-12-10 Test Time: 10:53:51 Pat Name: DANA MODI Department: ER Room: 0274T Gender: F Software Intern: ER : 1950 Requested By: MARK MELENDEZ Order Number: [id number] Reading MD: Mejia Coombs Measurements Intervals [place] Rate: 54 P: 13 NE: 176 QRS: -3 QRSD: 107 T: 20 QT: 433 QTc: 411 Interpretive Statements Sinus rhythm Low voltage, precordial leads Left ventricular hypertrophy Anterior Q waves, possibly due to LVH Electronically Signed On 12-11-2024 18:46:51 PST by Mejia Coombs Please click the below link to view image of tracing.
[2024-12-10 19:01] LABS: Hepatitis B Surface Antigen Negative (Negative)
[2024-12-10 19:08] LABS: Hepatitis C Antibody Negative (Negative)
[2024-12-10 20:28] VITALS: BP 92/44; PULSE 49; RESP 20; TEMP 97.7; O2SAT 99
[2024-12-10] MEDS: SODIUM CHLORIDE 0.9% 1,000 ML IV ONE (21:19)
[2024-12-10] MEDS: RANOLAZINE ER 500 MG TAB PO SCH (21:34)
[2024-12-10] MEDS: ATORVASTATIN 20 MG TAB PO SCH (21:35)
[2024-12-11] VITALS (11 sets, daily range): BP systolic 95–122; BP diastolic 31–58; PULSE 47–67; RESP 12–19; TEMP 97.4–98.3; O2SAT 95–100
[2024-12-11 06:35] LABS: Chloride 105 mmol/L (98-107); Potassium 4.1 mmol/L (3.5-5.1); Sodium 140 mmol/L (136-145)
[2024-12-11 06:36] LABS: Anion Gap 10 (5-15); Calcium 9.5 mg/dL (8.7-10.4); Carbon Dioxide 25 mmol/L (20-31)
[2024-12-11 06:41] LABS: BUN/Creatinine Ratio 24.1 (10.0-20.0); Glucose 92 mg/dL (74-106)
[2024-12-11 06:42] LABS: Magnesium 1.9 mg/dL (1.6-2.6)
[2024-12-11 06:54] LABS: Blood Urea Nitrogen 26 mg/dL (9-23)
[2024-12-11] MEDS: PANTOPRAZOLE 40 MG TAB PO SCH (07:06)
[2024-12-11] MEDS: LEVOTHYROXINE SODIUM 50 MCG TAB PO SCH (07:06)
[2024-12-11 07:27] LABS: Basophils # (auto) 0 10 ^3/uL (0-0.2); Basophils % (auto) 0.2 % (0.0-2.0); Eosinophils # (auto) 0.1 10 ^3/uL (0-0.8); Eosinophils % (auto) 1.5 % (0.0-7.0); Hematocrit 44.4 % (36.0-46.0); Hemoglobin 14.5 g/dL (12.2-16.2); Lymphocytes # (auto) 2.1 10 ^3/uL (0.4-5.4); Lymphocytes % (auto) 29.8 % (10.0-50.0); Mean Corpuscular Hemoglobin 29.1 pg (28.0-32.0); Mean Corpuscular Hgb Conc. 32.6 g/dL (32.0-36.0); Mean Corpuscular Volume 89.3 fL (80.0-100.0); Monocytes # (auto) 0.5 10 ^3/uL (0-1.3); Monocytes % (auto) 7.3 % (0.0-12.0); Neutrophils # (auto) 4.3 10 ^3/uL (1.6-8.6); Neutrophils % (auto) 61.2 % (37.0-80.0); Nucleated Red Blood Cells % 0.2 %; Platelet Count (auto) 169 10^3/uL (140-450); Red Blood Cells 4.97 10^6/uL (4.0-5.20); Red Cell Distribution Width 14.4 % (11.8-14.3); White Blood Cell 7.1 10^3/uL (4.4-10.8)
[2024-12-11] MEDS: SPIRONOLACTONE 25 MG TAB PO SCH (09:34)
[2024-12-11] MEDS: EMPAGLIFLOZIN 10 MG TAB PO SCH (09:34)
[2024-12-11] MEDS: amLODIPine BESYLATE 5 MG TAB PO SCH (09:35)
[2024-12-11] MEDS: SACUBITRIL-VALSARTAN 24mg/26mg TAB PO SCH (09:36)
[2024-12-11] MEDS: ASPirin 81 mg TAB PO SCH (09:36)
[2024-12-11] MEDS: FUROSEMIDE 20 MG TAB PO SCH (09:36)
[2024-12-11] MEDS: ATENOLOL 25 MG TAB PO SCH (09:37)
[2024-12-11] MEDS: DOXAZOSIN MESYL 2 MG TAB PO SCH (10:28)
--- NOTE | 2024-12-11 13:15 | DVHPN2 ---
Reviewed: Care Plan, H&P, Labs, Medications, Previous Orders, Radiology Changes from previous H/P or p: No Changes Respiratory: Shortness of breath Gastrointestinal: Nausea Genitourinary: Frequency Objective Vitals Vital Signs Date Time Temp Pulse Resp B/P (MAP) Pulse Ox O2 Delivery O2 Flow Rate FiO2 12/11/24 10:28 109/49 12/11/24 10:00 62 12 99 12/11/24 08:00 97.8 97.8 12/11/24 07:43 Nasal Cannula* 2 28 Medications Current Medications Medications Dose Ordered Sig/Travon Route Start Time Stop Time Status Last Admin Dose Admin Acetaminophen 650 mg Q6HP PRN PO 12/10/24 13:15 Ondansetron HCl 4 mg Q4HP PRN IV 12/10/24 13:15 Nitroglycerin 0.4 mg Q5MINP PRN SL 12/10/24 13:15 Morphine Sulfate 2 mg Q30M PRN IV 12/10/24 13:15 Aspirin 81 mg DAILY PO 12/11/24 10:00 12/11/24 09:36 81 MG Atenolol 25 mg DAILY PO 12/11/24 10:00 Empaglifozin 10 mg DAILY PO 12/11/24 10:00 12/11/24 09:34 10 MG Furosemide 20 mg DAILY PO 12/11/24 10:00 12/11/24 09:36 20 MG Levothyroxine Sodium 50 mcg QAM PO 12/11/24 07:00 12/11/24 07:06 50 MCG Sacubitril/ Valsartan 1 tab DAILY PO 12/11/24 10:00 12/11/24 09:36 1 TAB Spironolactone 25 mg DAILY PO 12/11/24 10:00 12/11/24 09:34 25 MG Amlodipine Besylate 10 mg DAILY PO 12/11/24 10:00 12/11/24 09:35 10 MG Atorvastatin Calcium 40 mg HS PO 12/10/24 22:00 12/10/24 21:35 40 MG Doxazosin Mesylate 1 mg DAILY PO 12/11/24 10:00 12/11/24 10:28 1 MG Pantoprazole Sodium 40 mg DAILY@0700 PO 12/11/24 07:00 12/11/24 07:06 40 MG Ranolazine 1,000 mg BID PO 12/10/24 22:00 12/11/24 09:35 1,000 MG Laboratory Results Laboratory Tests 12/11/24 05:44 Chemistry Test 12/11/24 05:44 Calcium Level 9.5 mg/dL (8.7-10.4) Magnesium Level 1.9 mg/dL (1.6-2.6) Urinalysis Test 12/10/24 12:00 Urine Color Colorless (Yellow) Urine Clarity Clear (Clear) Urine pH 6.5 (5.0-9.0) Urine Specific [place] 1.007 (1.001-1.035) Urine Protein Negative (Negative) Urine Ketones Negative (Negative) Urine Blood Negative /uL (Negative) Urine Nitrite Negative (Negative) Urine Bilirubin Negative (Negative) Urine Urobilinogen Normal mg/dL (Negative) Urine Leukocyte Esterase Negative /uL (Negative) Urine RBC <1 /hpf (0 - 4) Urine Microscopic WBC < 1 /HPF (0-5) Urine Squamous Epithelial Cells Few /hpf (<5) Urine Bacteria None seen /hpf (None Seen) Urine Glucose 3+ mg/dL (Normal) H Labs and/or images reviewed: Labs reviewed by me, Image(s) reviewed by me Assessment/Plan Assessment/Plan Non-cardiac chest pain: Left heart catheterization 02/17/2024 showed nonobstructive moderate coronary artery disease with a recommendation for medical therapy cardiology consult by Dr. Coombs appreciated advised outpatient follow up Moderate non-obstructive CAD with sluggish flow Hx of non-ischemic HFrEF now HFrecEF of 60% Sinus bradycardia, off beta-blockers Hypertension Dyslipidemia Thyroid disease Obesity Patient would like to be discharged on Thursday, not today Plan discussed with: Patient Date of Service: Dec 11, 2024 Billing Provider: ROMINA MERAZ MD Common Visit Codes: [id number] INP/OBS CARE(HIGH) ROMINA MERAZ MD Dec 11, 2024 13:15
--- NOTE | 2024-12-11 15:42 | DVHSR ---
APPROVED REPORT EXAM: Two-dimensional and M-mode echocardiogram with Doppler and color Doppler. Blood Pressure: 121/57 mmHg INDICATION Chest Pain RISK FACTORS Height: 5' 2", Weight: 157 DIMENSIONS LVDd4.0 (3.8-5.7cm)LA (2D)3.7 (1.9-4.0cm)Aortic Root2.9 (2.0-3.7cm) LVDs2.7 (2.5-4.0cm)LA (MM) (1.9-4.0cm)Aortic Cusp Exc1.7 (1.5-2.0cm) EF (%) 60.0 (55-70%)Rt. Atrium3.6 (1.9-4.0cm)Asc. Aorta cm IVSd1.1 (0.7-1.1cm)RV (D) (1.8-2.4cm) PWd0.9 (0.7-1.1cm) Mitral Valve MitralMitral Stenosis E wave0.40m/sMV Mean GR.mmHg A wave0.90m/sMV Peak GR.mmHg E/A ratio0.42D MVAcm2 Aortic Valve Aortic ValveAortic Stenosis V10.80m/Santosh Mean GR.3mmHg V21.30m/Santosh Peak GR.7mmHg LVOT Diameter2.0 (1.8-2.4cm)Doppler AVA1.93cm2 Pulmonic Valve V20.50m/s Conclusion Technically good study. Sinus rhythm. Normal chamber sizes. Normal valves. EF normal at 60% with normal RV function. Dopplers normal. No pericardial effusion masses or vegetations.
[2024-12-12 01:00] VITALS: BP 109/63; PULSE 60; RESP 20; TEMP 98.2; O2SAT 97
[2024-12-12 05:00] VITALS: BP 119/60; PULSE 54; RESP 20; TEMP 98.1; O2SAT 96
[2024-12-12 07:56] VITALS: PULSE 65; RESP 17
[2024-12-12 08:00] VITALS: PULSE 49
[2024-12-12 09:00] VITALS: BP 130/61; PULSE 58; RESP 15; TEMP 97.7; O2SAT 96
--- NOTE | 2024-12-12 11:31 | DVHPN2 ---
Reviewed: Care Plan, H&P, Labs, Medications, Previous Orders, Radiology Changes from previous H/P or p: No Changes Respiratory: Shortness of breath Gastrointestinal: Nausea Genitourinary: Frequency Objective Vitals Vital Signs Date Time Temp Pulse Resp B/P (MAP) Pulse Ox O2 Delivery O2 Flow Rate FiO2 12/12/24 10:09 130/61 12/12/24 10:08 58 12/12/24 07:56 17 Room Air* 0 21 12/12/24 05:00 98.1 96 98.1 Intake/Output Intake and Output 12/12/24 07:00 Intake Total 1480 ml Output Total 500 ml Balance 980 ml Intake Oral 1480 ml Output Urine Total 500 ml # Voids 3 Medications Current Medications Medications Dose Ordered Sig/Travon Route Start Time Stop Time Status Last Admin Dose Admin Acetaminophen 650 mg Q6HP PRN PO 12/10/24 13:15 Ondansetron HCl 4 mg Q4HP PRN IV 12/10/24 13:15 Nitroglycerin 0.4 mg Q5MINP PRN SL 12/10/24 13:15 Morphine Sulfate 2 mg Q30M PRN IV 12/10/24 13:15 Aspirin 81 mg DAILY PO 12/11/24 10:00 12/12/24 10:05 81 MG Atenolol 25 mg DAILY PO 12/11/24 10:00 12/12/24 10:08 25 MG Empaglifozin 10 mg DAILY PO 12/11/24 10:00 12/11/24 09:34 10 MG Furosemide 20 mg DAILY PO 12/11/24 10:00 12/12/24 10:05 20 MG Levothyroxine Sodium 50 mcg QAM PO 12/11/24 07:00 12/12/24 06:08 50 MCG Sacubitril/ Valsartan 1 tab DAILY PO 12/11/24 10:00 12/12/24 10:04 1 TAB Spironolactone 25 mg DAILY PO 12/11/24 10:00 12/12/24 10:08 25 MG Amlodipine Besylate 10 mg DAILY PO 12/11/24 10:00 12/12/24 10:09 10 MG Atorvastatin Calcium 40 mg HS PO 12/10/24 22:00 12/11/24 21:22 40 MG Doxazosin Mesylate 1 mg DAILY PO 12/11/24 10:00 12/12/24 10:06 1 MG Pantoprazole Sodium 40 mg DAILY@0700 PO 12/11/24 07:00 12/12/24 06:08 40 MG Ranolazine 1,000 mg BID PO 12/10/24 22:00 12/12/24 10:07 1,000 MG Laboratory Results Laboratory Tests 12/11/24 05:44 Urinalysis Test 12/10/24 12:00 Urine Color Colorless (Yellow) Urine Clarity Clear (Clear) Urine pH 6.5 (5.0-9.0) Urine Specific [place] 1.007 (1.001-1.035) Urine Protein Negative (Negative) Urine Ketones Negative (Negative) Urine Blood Negative /uL (Negative) Urine Nitrite Negative (Negative) Urine Bilirubin Negative (Negative) Urine Urobilinogen Normal mg/dL (Negative) Urine Leukocyte Esterase Negative /uL (Negative) Urine RBC <1 /hpf (0 - 4) Urine Microscopic WBC < 1 /HPF (0-5) Urine Squamous Epithelial Cells Few /hpf (<5) Urine Bacteria None seen /hpf (None Seen) Urine Glucose 3+ mg/dL (Normal) H Labs and/or images reviewed: Labs reviewed by me, Image(s) reviewed by me Assessment/Plan Assessment/Plan Non-cardiac chest pain: Left heart catheterization 02/17/2024 showed nonobstructive moderate coronary artery disease with a recommendation for medical therapy cardiology consult by Dr. Coombs appreciated advised outpatient follow up, Moderate non-obstructive CAD with sluggish flow Hx of non-ischemic HFrEF now HFrecEF of 60% Sinus bradycardia, off beta-blockers atenolol Hypertension Dyslipidemia Thyroid disease Obesity Patient would like to be discharged on Thursday, not today Plan discussed with: Patient Date of Service: Dec 12, 2024 Billing Provider: ROMINA MERAZ MD Common Visit Codes: [id number] INP/OBS CARE(HIGH) ROMINA MERAZ MD Dec 12, 2024 11:31
--- NOTE | 2024-12-12 11:35 | DVHDS2 ---
Discharge Summary Date of Admission Dec 10, 2024 at 13:10 Date of Discharge: Dec 12, 2024 Admitting Diagnosis Chest pain Wounds: None Labs/Diagnostic Data: Laboratory Results Test 12/11/24 05:44 12/10/24 13:55 12/10/24 12:00 12/10/24 10:56 White Blood Count 7.1 10^3/uL (4.4-10.8) Red Blood Count 4.97 10^6/uL (4.0-5.20) Hemoglobin 14.5 g/dL (12.2-16.2) Hematocrit 44.4 % (36.0-46.0) Mean Corpuscular Volume 89.3 fL (80.0-100.0) Mean Corpuscular Hemoglobin 29.1 pg (28.0-32.0) Mean Corpuscular Hemoglobin Concent 32.6 g/dL (32.0-36.0) Red Cell Distribution Width 14.4 % (11.8-14.3) Platelet Count 169 10^3/uL (140-450) Mean Platelet Volume 9.3 fL (6.9-10.8) Neutrophils (%) (Auto) 61.2 % (37.0-80.0) Lymphocytes (%) (Auto) 29.8 % (10.0-50.0) Monocytes (%) (Auto) 7.3 % (0.0-12.0) Eosinophils (%) (Auto) 1.5 % (0.0-7.0) Basophils (%) (Auto) 0.2 % (0.0-2.0) Neutrophils # (Auto) 4.3 10 ^3/uL (1.6-8.6) Lymphocytes # (Auto) 2.1 10 ^3/uL (0.4-5.4) Monocytes # (Auto) 0.5 10 ^3/uL (0-1.3) Eosinophils # (Auto) 0.1 10 ^3/uL (0-0.8) Basophils # (Auto) 0 10 ^3/uL (0-0.2) Nucleated Red Blood Cells 0.2 % Sodium Level 140 mmol/L (136-145) Potassium Level 4.1 mmol/L (3.5-5.1) Chloride Level 105 mmol/L (98-107) Carbon Dioxide Level 25 mmol/L (20-31) Anion Gap 10 (5-15) Blood Urea Nitrogen 26 mg/dL (9-23) Creatinine 1.08 mg/dL (0.550-1.02) Glomerular Filtration Rate Calc 55 mL/min (>90) BUN/Creatinine Ratio 24.1 (10.0-20.0) Serum Glucose 92 mg/dL (74-106) Calcium Level 9.5 mg/dL (8.7-10.4) Magnesium Level 1.9 mg/dL (1.6-2.6) Troponin I High Sensitivity 5 ng/L (</=34) Urine Color Colorless (Yellow) Urine Clarity Clear (Clear) Urine pH 6.5 (5.0-9.0) Urine Specific [place] 1.007 (1.001-1.035) Urine Protein Negative (Negative) Urine Ketones Negative (Negative) Urine Blood Negative /uL (Negative) Urine Nitrite Negative (Negative) Urine Bilirubin Negative (Negative) Urine Urobilinogen Normal mg/dL (Negative) Urine Leukocyte Esterase Negative /uL (Negative) Urine RBC <1 /hpf (0 - 4) Urine Microscopic WBC < 1 /HPF (0-5) Urine Squamous Epithelial Cells Few /hpf (<5) Urine Bacteria None seen /hpf (None Seen) Urine Glucose 3+ mg/dL (Normal) Urine Opiates Screen Neg (NEGATIVE) Urine Fentanyl Screen Neg (NEGATIVE) Urine Barbiturates Screen Neg (NEGATIVE) Urine Phencyclidine Screen Neg (NEGATIVE) Urine Amphetamines Screen Neg (NEGATIVE) Urine Benzodiazepines Screen Neg (NEGATIVE) Urine Cocaine Screen Neg (NEGATIVE) Urine Cannabinoids Screen Neg (NEGATIVE) Hemoglobin A1c 5.6 % A1C (<5.7) B-Type Natriuretic Peptide 115.68 pg/mL (0-100) Triglycerides Level 116 mg/dL (< 150) Cholesterol Level 129 mg/dL (< 200) LDL Cholesterol 62 mg/dL (< 100) HDL Cholesterol 48 mg/dL (40-59) Thyroid Stimulating Hormone (TSH) 1.63 uIU/mL (0.55-4.78) Hepatitis B Surface Antigen Negative (Negative) Hepatitis C Antibody Negative (Negative) Other Laboratory Tests 12/11/24 05:44 Brief Hx & Hospital Course: 74-year-old female with a history of hypertension hypercholesterolemia hypothyroidism nonobstructive coronary artery disease congestive heart failure came in complaining of chest pain troponin negative x3. Left heart catheterization five 06 04 showed nonobstructive moderate coronary artery disease with recommendation for medical therapy. Cardiology consult by Dr. Coombs. Stop atenolol because of bradycardia and follow up as an outpatient. At the time of discharge patient is asymptomatic with stable vital signs discharged home. Consults/Reason for consult Cardiology Dr. Coombs Operations or Procedures None Condition at Discharge: Fair Final Diagnosis/Problems List Non-cardiac chest pain: Left heart catheterization 02/17/2024 showed nonobstructive moderate coronary artery disease with a recommendation for medical therapy cardiology consult by Dr. Coombs appreciated advised outpatient follow up, Moderate non-obstructive CAD with sluggish flow Hx of non-ischemic HFrEF now HFrecEF of 60% Sinus bradycardia, off beta-blockers atenolol Hypertension Dyslipidemia Thyroid disease Obesity Discharge Disposition: Home Discharge Instruct/Medications Diet: Cardiac 2g Na,low cholest Activity: Light activity Follow Up/Referral: Stop atenolol Resume all other medications Follow up with the Dr. Coombs Medications: None 35 (Time taken for discharge summary 35 minutes) Discharge Statement: "Patient was advised to return to the ER or call 911 if any headaches, dizziness, shortness of breath, chest pain, abdominal pain, bleeding, fevers, or worsening of medical condition. Patient was counseled about treatment plan, medications, possible side effects, patientverbalized understanding. All questions were answered to the best of my ability. This discharge took greater then 30 minutes in planning, reviewing documentation, counseling the patient, and discussing with other team members." ASSESSMENT ASSESSMENT Hospital Course Improved Assessment Non-cardiac chest pain: Left heart catheterization 02/17/2024 showed nonobstructive moderate coronary artery disease with a recommendation for medical therapy cardiology consult by Dr. Coombs appreciated advised outpatient follow up, Moderate non-obstructive CAD with sluggish flow Hx of non-ischemic HFrEF now HFrecEF of 60% Sinus bradycardia, off beta-blockers atenolol Hypertension Dyslipidemia Thyroid disease Obesity Date of Service: Dec 12, 2024 Billing Provider: ROMINA MERAZ MD Common Visit Codes: [id number] DISCH DAY >30min ROMINA MERAZ MD Dec 12, 2024 11:35
[2024-12-12 13:00] VITALS: BP 130/61; PULSE 58
== END 2024-12-12 14:00 | disposition home or self-care (01) | DRG 392 ==
LOC: ER 10:46 → OVERFLOW 13:10 → TELE-WESTW 12-11 12:17
PROVIDERS: ADMIT Family Medicine; ATTEND Family Medicine
DX: K21.9 Gastro-esophageal reflux disease without esophagitis (principal); N17.9 Acute kidney failure, unspecified; I50.42 Chronic combined systolic (congestive) and diastolic (congestive) heart failure; E03.9 Hypothyroidism, unspecified; I11.0 Hypertensive heart disease with heart failure; E66.9 Obesity, unspecified; E78.5 Hyperlipidemia, unspecified; E87.5 Hyperkalemia; F41.9 Anxiety disorder, unspecified; I25.10 Atherosclerotic heart disease of native coronary artery without angina pectoris; J45.909 Unspecified asthma, uncomplicated; Z88.3 Allergy status to other anti-infective agents; Z88.1 Allergy status to other antibiotic agents; Z90.49 Acquired absence of other specified parts of digestive tract; Z83.3 Family history of diabetes mellitus; Z82.49 Family history of ischemic heart disease and other diseases of the circulatory system; Z80.0 Family history of malignant neoplasm of digestive organs; Z68.28 Body mass index [BMI] 28.0-28.9, adult; Z79.899 Other long term (current) drug therapy; Z87.440 Personal history of urinary (tract) infections
CPT/HCPCS: 36415; 71045; 80048; 80061; 80307; 81001; 83036; 83735; 83880; 84443; 84484; 85025; 86803; 87340; 93005; 93306; 94640; 96360; G0378

== ENCOUNTER 2025-03-17 11:41 | Inpatient (IN) | payer OTHER, MEDICAID ==
[~2025-03-17] VITALS: Ht 154.9 cm; Wt 77.5 kg
[~2025-03-17 11:41] MED LIST changes: -CEPH250C PO; +GAB100C; -OMEP20TA PO
--- NOTE | 2025-03-17 12:11 | ED.PDOC ---
HPI (NEURO) HPI Comments This is a 75 year old female presenting to the ED with chief complaint of generalized weakness. Patient reports that she had woken up yesterday morning experiencing generalized weakness with associated lightheadedness and SOB, continuing till now. Patient relays that she has had no sick contacts at home. Patient denies any chest pain, dizziness, headache, N/V/D, abdominal pain, fever, or chills. Chief Complaint: General Weakness Time Seen by MD: 12:09 Primary Care Provider: RAISA Carmona Notes: Nurses Notes, Medications, Allergies Information Source: Patient Mode of Arrival: Ambulatory Severity: Moderate Dizziness/Weakness Severity: Unable to do activities Timing: Days Duration: Since onset Prehospital treatment: None Weakness Location: Generalized Onset: At rest Circumstances: Spontaneous Symptoms: Weakness Past Medical History PAST MEDICAL HISTORY: Asthma, CAD, CHF, High Lipids, HTN, Thyroid, UTI'S Surgical History: Appendectomy, BTL, Cholecystectomy, Tonsillectomy Surgical History (Other): Bladder Lift 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 Family History Family History: Reviewed,noncontributory to illness, No family hx of DM, No family hx of HTN Social History Smoker: Non-Smoker Alcohol: Rarely Drugs: Denies Drug Use Lives In: Home Constitutional: reports: weakness; denies: chills, diaphoresis, fatigue, fever, malaise, sweats, others EENTM: denies: blurred vision, double vision, ear bleeding, ear discharge, ear drainage, ear pain, ear ringing, eye pain, eye redness, hearing loss, mouth pain, mouth swelling, nasal discharge, nose bleeding, nose congestion, nose pain, photophobia, tearing, throat pain, throat swelling, voice changes, others Respiratory: reports: shortness of breath; denies: cough, hemoptysis, orthopnea, SOB at rest, SOB with excertion, stridor, wheezing, others Cardiovascular: reports: lightheadedness; denies: chest pain, dizzy spells, diaphoresis, Dyspnea on exertion, edema, irregular heart beat, left arm pain, palpitations, PND, syncope, others Gastrointestinal: denies: abdomen distended, abdominal pain, blood streaked bowels, constipated, diarrhea, dysphagia, difficulty swallowing, hematemesis, melena, nausea, poor appetite, poor fluid intake, rectal bleeding, rectal pain, vomiting, others Genitourinary: denies: abnormal vagina bleeding, burning, dyspareunia, dysuria, flank pain, frequency, hematuria, incontinence, pain, , vagina discharge, urgency, others Neurological: denies: dizziness, fainting, headache, left sided numbness, left sided weakness, numbness, paresthesia, pre-existing deficit, right sided numbness, right sided weakness, seizure, speech problems, tingling, tremors, weakness, others Musculoskeletal: denies: back pain, gout, joint pain, joint swelling, muscle pain, muscle stiffness, neck pain, others Integumetry: denies: bruises, change in color, change in hair/nails, dryness, laceration, lesions, lumps, rash, wounds, others Allergic/Immunocompromised: denies: Difficulty Healing, Frequent Infections, Hives, Itching, others Hematologic/Lymphatic: denies: anemia, blood clots, easy bleeding, easy bruising, swollen glands, others Endocrine: denies: excessive hunger, excessive sweating, excessive thirst, excessive urination, flushing, intolerance to cold, intolerance to heat, unexp lained weight gain, unexplained weight loss, others Psychiatric: denies: anxiety, bipolar disorder, depression, hopeless, panic disorder, schizophrenia, sleepless, suicidal, others All Other Systems: Reviewed and Negative Physical Exam General Appearance: Moderate Distress HEENT: Normal ENT Inspection, Pharynx Normal, TMs Normal Neck: Full Range of Motion, Non-Tender, Normal, Normal Inspection Respiratory: Chest Non-Tender, Lungs Clear, No Accessory Muscle Use, No Respiratory Distress, Normal Breath Sounds Cardiovascular: No Edema, No JVD, No Murmur, No Gallop, Normal Peripheral Pulses, Regular Rate/Rhythm Breast Exam: Deferred Gastrointestinal: No Organomegaly, Non Tender, No Pulsatile Mass, Normal Bowel Sounds, Soft Genitalia: Deferred Pelvic: Deferred Rectal: Deferred Extremities: No calf tenderness, Normal capillary refill, Normal inspection, Normal range of motion, Non-tender, No pedal edema Musculoskeletal : Apperance: Normal Neurologic: Alert, semiconductor processing group leader II-XII nml as Tested, No Motor Deficits, Normal Affect, Normal Mood, No Sensory Deficits Cerebellar Function: Normal Reflexes: Normal Skin: Dry, Normal Color, Warm Lymphatic: No Adenopathy Was a procedure done? Was a procedure done?: No Differential Diagnosis (SZ) Seizure: Idiopathic, Syncope, Other (Generalized weakness) X-Ray, Labs, Meds, VS Vital Signs Date Time Temp Pulse Resp B/P (MAP) Pulse Ox O2 Delivery O2 Flow Rate FiO2 03/17/25 17:48 97.4 53 16 136/77 (96) 98 97.4 03/17/25 15:52 98.7 53 16 167/72 (103) 97 98.7 03/17/25 13:41 56 18 98 Room Air 03/17/25 13:41 97.7 56 18 153/73 (99) 98 97.7 03/17/25 12:07 61 03/17/25 12:03 98.1 69 16 139/90 (106) 97 98.1 Lab Test 03/17/25 13:05 03/17/25 12:12 Range/Units White Blood Count 5.4 4.4-10.8 10^3/uL Red Blood Count 4.80 4.0-5.20 10^6/uL Hemoglobin 13.9 12.2-16.2 g/dL Hematocrit 42.4 36.0-46.0 % Mean Corpuscular Volume 88.3 80.0-100.0 fL Mean Corpuscular Hemoglobin 29.0 28.0-32.0 pg Mean Corpuscular Hemoglobin Concent 32.8 32.0-36.0 g/dL Red Cell Distribution Width 15.3 H 11.8-14.3 % Platelet Count 160 140-450 10^3/uL Mean Platelet Volume 9.5 6.9-10.8 fL Neutrophils (%) (Auto) 54.3 37.0-80.0 % Lymphocytes (%) (Auto) 36.1 10.0-50.0 % Monocytes (%) (Auto) 8.0 0.0-12.0 % Eosinophils (%) (Auto) 1.3 0.0-7.0 % Basophils (%) (Auto) 0.3 0.0-2.0 % Neutrophils # (Auto) 2.9 1.6-8.6 10 ^3/uL Lymphocytes # (Auto) 2.0 0.4-5.4 10 ^3/uL Monocytes # (Auto) 0.4 0-1.3 10 ^3/uL Eosinophils # (Auto) 0.1 0-0.8 10 ^3/uL Basophils # (Auto) 0 0-0.2 10 ^3/uL Nucleated Red Blood Cells 0.0 % Sodium Level 142 136-145 mmol/L Potassium Level 4.3 3.5-5.1 mmol/L Chloride Level 110 H 98-107 mmol/L Carbon Dioxide Level 23 20-31 mmol/L Anion Gap 9 5-15 Blood Urea Nitrogen 20 9-23 mg/dL Creatinine 0.81 0.550-1.02 mg/dL Glomerular Filtration Rate Calc 77 >90 mL/min BUN/Creatinine Ratio 24.7 H 10.0-20.0 Serum Glucose 94 74-106 mg/dL Calcium Level 9.7 8.7-10.4 mg/dL Troponin I High Sensitivity 6 5 </=34 ng/L IV Hep-Lock was established The troponin level x2 is negative The CBC and chemistry panel are within normal limits At this time, the patient is being admitted to the hospitalist Time of 1ST Reevaluation: 19:06 Reevaluation 1ST: Unchanged Patient Education/Counseling: Diagnosis, Treatment Family Education/Counseling: No Family Present Additional Information Reviewed patient's previous visit(s): 12/10/24 for chest pain The following tests were ordered, and results were reviewed by me: EKG, Troponin Additional information was gathered from interviewing the following independent historian: NONE I reviewed and agreed with the following test results read by other provider: NONE I discussed treatments and results with medical personnel and: Patient Comprehensive systems review obtained and negative except for what is stated in the HPI. Departure 1 Departure Time of Disposition: 19:06 Impression: Primary Impression: Generalized weakness Additional Impressions: Electrolyte imbalance Autonomic dysfunction Disposition: ADMITTED INPATIENT Admit to: Tele Condition: Fair Critical Care Note Critical Care Time?: No Stability Stability form required: Yes Unstable for transfer: Telemetry monitoring (Telemetry monitoring required), ED Physician Assesment (Clinical assesment) Heart Score Heart Score: Heart Score Response (Comments) Value History Moderate Suspicious 1 EKG Normal 0 Age >65 2 Risk Factors >3 or Hx ASHD 2 Troponin Normal limit 0 Total 5 I personally scribed for BRUCE SPRING MD ([email or web address]) on 03/17/25 at 12:11. Electronically submitted by Christopher Resendiz ([email or web address]). BRUCE SPRING MD Mar 17, 2025 12:11
[2025-03-17 17:19] LABS: Basophils # (auto) 0 10 ^3/uL (0-0.2); Basophils % (auto) 0.3 % (0.0-2.0); Eosinophils # (auto) 0.1 10 ^3/uL (0-0.8); Eosinophils % (auto) 1.3 % (0.0-7.0); Hematocrit 42.4 % (36.0-46.0); Hemoglobin 13.9 g/dL (12.2-16.2); Lymphocytes % (auto) 36.1 % (10.0-50.0); Mean Corpuscular Hgb Conc. 32.8 g/dL (32.0-36.0); Mean Corpuscular Volume 88.3 fL (80.0-100.0); Monocytes # (auto) 0.4 10 ^3/uL (0-1.3); Neutrophils # (auto) 2.9 10 ^3/uL (1.6-8.6); Neutrophils % (auto) 54.3 % (37.0-80.0); Platelet Count (auto) 160 10^3/uL (140-450); Red Cell Distribution Width 15.3 % (11.8-14.3); White Blood Cell 5.4 10^3/uL (4.4-10.8)
[2025-03-17 17:23] LABS: Potassium 4.3 mmol/L (3.5-5.1); Sodium 142 mmol/L (136-145)
[2025-03-17 17:24] LABS: Anion Gap 9 (5-15); Carbon Dioxide 23 mmol/L (20-31)
[2025-03-17 17:25] LABS: Calcium 9.7 mg/dL (8.7-10.4)
[2025-03-17 17:30] LABS: BUN/Creatinine Ratio 24.7 (10.0-20.0); Blood Urea Nitrogen 20 mg/dL (9-23); Glucose 94 mg/dL (74-106)
[2025-03-17 17:31] LABS: Chloride 110 mmol/L (98-107)
[2025-03-17 23:02] LABS: Alanine Aminotransferase 17 U/L (7-40); Albumin 4.4 g/dL (3.2-4.8); Anion Gap 11 (5-15); Aspartate Aminotransferase 17 U/L (13-40); BUN/Creatinine Ratio 23.5 (10.0-20.0); Bilirubin, Total 0.4 mg/dL (0.2-1.0); Blood Urea Nitrogen 19 mg/dL (9-23); Calcium 9.1 mg/dL (8.7-10.4); Carbon Dioxide 22 mmol/L (20-31); Glucose 96 mg/dL (74-106); Magnesium 1.7 mg/dL (1.6-2.6); Potassium 4.2 mmol/L (3.5-5.1); Sodium 142 mmol/L (136-145); Total Protein 6.7 g/dL (5.7-8.2)
[2025-03-17 23:06] LABS: Erythrocyte Sedimentation Rate 2 mm/hr (0-20)
[2025-03-17 23:07] LABS: Alkaline Phosphatase 125 U/L (46-116); Chloride 109 mmol/L (98-107)
[2025-03-17 23:08] VITALS: PULSE 70; RESP 18; O2SAT 97
[2025-03-17 23:33] LABS: CRP High Sensitivity 0.16 mg/dL (<1.0)
[2025-03-18] VITALS (9 sets, daily range): BP systolic 120–156; BP diastolic 60–79; PULSE 52–87; RESP 16–18; TEMP 97.4–100.1; O2SAT 85–99
[2025-03-18] MEDS: KETOROLAC TROMETH 30 MG/ML 1ML VIAL IV PRN (00:29)
[2025-03-18] MEDS: SACUBITRIL-VALSARTAN 24mg/26mg TAB PO SCH (00:30)
--- NOTE | 2025-03-18 00:37 | DVHHPRES ---
History of Present Illness Resident Creating Document: BRINA VENTURA RESIDENT History of Present Illness Patient is a 75-year-old female with a past medical history of congestive heart failure (heart failure with improved ejection fraction ), hypertension, hyperlipidemia, hypothyroidism, ?Giant cell arteritis presented to the ED with a chief complaint of generalized weakness. Patient reported to be doing apparently well 2-3 days ago when she started feeling tired, dizziness on getting up from a lying or sitting down and felt like she could not breathe and could not take a deep breath. Patient denied cough, fever, chills. Patient does not have any history of lung disease. Patient has a history of heart failure last echo done in December 2024 shows LVEF 60%. Patient currently does report of orthopnea and uses 4 pillows at night to sleep. Patient reports leg cramping and decreased vision. She also reports that she had history of headaches following which she was diagnosed with giant cell arteritis after a biopsy but she does not know which hospital or the physician did the biopsy. Patient underwent a coronary angiogram in February 2024 which showed moderate nonobstructive coronary artery disease with sluggish flow of the left coronary system and aggressive medical therapy was recommended. Past medical history: congestive heart failure (heart failure with improved ejection fraction ), hypertension, hyperlipidemia, hypothyroidism, ?Giant cell arteritis Past surgical history: Appendectomy, cholecystectomy, tonsillectomy Social history: Patient lives with family and denies smoking, alcohol, drug use Home medications: Entresto 49-51 mg 1 tab b.i.d., atorvastatin 40 mg, spironolactone 25 mg, doxazosin 1 mg, levothyroxine 50 mcg, aspirin 81 mg, atenolol 25 mg Review of Systems Review of Systems Seen and examined at the bedside Reports of dizziness when she tries to get up from sitting position and feels she is going to fall back Denies chest pain, palpitations Patient has a headache bitemporal but denies blurred vision, jaw claudication Allergies: Coded Allergies: Sulfamethoxazole w/Trimethoprim (Verified Allergy, Unknown, 01/15/22) Medications Current Medications Medications Dose Ordered Sig/Travon Route Start Time Stop Time Status Last Admin Dose Admin Sacubitril/ Valsartan 1 tab BID PO 03/17/25 22:15 Acetaminophen 650 mg Q6HP PRN PO 03/17/25 22:15 Ketorolac Tromethamine 15 mg Q6HPRN PRN IV 03/17/25 22:15 03/22/25 22:14 Aspirin 81 mg DAILY PO 03/18/25 10:00 Atorvastatin Calcium 40 mg HS PO 03/18/25 22:00 Empaglifozin 10 mg DAILY PO 03/18/25 10:00 Amlodipine Besylate 5 mg DAILY PO 03/18/25 10:00 Exam Vital Signs Vital Signs Date Time Temp Pulse Resp B/P (MAP) Pulse Ox O2 Delivery O2 Flow Rate FiO2 03/17/25 23:08 97.8 74 16 144/88 (106) 97 97.8 03/17/25 23:08 Room Air* 0 21 Exam Gen - no pallor, no icterus, no cyanosis, no clubbing, no LAD, no edema . Skin - Patients skin is warm and dry. HEENT - normocephalic, atraumatic, moist mucous membranes. Neck - full ROM, no LAD, no JVD Pulmonary - B/L equal breath sounds, no crackles, no wheezing, no stridor. cardiovascular - regular S1,S2 heard, no added sounds, no murmurs heard. peripheral pulses normal radial 2+, pedal 2+. capillary refill normal <2 secs. GI - soft, nontender abdomen. no hepatospleenomegaly. Bowel sounds normoactive Neurological - Patient is A/O X 3 . Bilateral upper extremity strength 4/5, bilateral lower extremity strength 4/5, no facial droop, normal speech, no tremor, no sensory deficiets. Labs/Xrays Labs Test 03/17/25 22:40 03/17/25 13:05 Range/Units White Blood Count 5.4 4.4-10.8 10^3/uL Red Blood Count 4.80 4.0-5.20 10^6/uL Hemoglobin 13.9 12.2-16.2 g/dL Hematocrit 42.4 36.0-46.0 % Mean Corpuscular Volume 88.3 80.0-100.0 fL Mean Corpuscular Hemoglobin 29.0 28.0-32.0 pg Mean Corpuscular Hemoglobin Concent 32.8 32.0-36.0 g/dL Red Cell Distribution Width 15.3 H 11.8-14.3 % Platelet Count 160 140-450 10^3/uL Mean Platelet Volume 9.5 6.9-10.8 fL Neutrophils (%) (Auto) 54.3 37.0-80.0 % Lymphocytes (%) (Auto) 36.1 10.0-50.0 % Monocytes (%) (Auto) 8.0 0.0-12.0 % Eosinophils (%) (Auto) 1.3 0.0-7.0 % Basophils (%) (Auto) 0.3 0.0-2.0 % Neutrophils # (Auto) 2.9 1.6-8.6 10 ^3/uL Lymphocytes # (Auto) 2.0 0.4-5.4 10 ^3/uL Monocytes # (Auto) 0.4 0-1.3 10 ^3/uL Eosinophils # (Auto) 0.1 0-0.8 10 ^3/uL Basophils # (Auto) 0 0-0.2 10 ^3/uL Nucleated Red Blood Cells 0.0 % Erythrocyte Sedimentation Rate 2 0-20 mm/hr Sodium Level 142 136-145 mmol/L Potassium Level 4.2 3.5-5.1 mmol/L Chloride Level 109 H 98-107 mmol/L Carbon Dioxide Level 22 20-31 mmol/L Anion Gap 11 5-15 Blood Urea Nitrogen 19 9-23 mg/dL Creatinine 0.81 0.550-1.02 mg/dL Glomerular Filtration Rate Calc 77 >90 mL/min BUN/Creatinine Ratio 23.5 H 10.0-20.0 Serum Glucose 96 74-106 mg/dL Calcium Level 9.1 8.7-10.4 mg/dL Magnesium Level 1.7 1.6-2.6 mg/dL Total Bilirubin 0.4 0.2-1.0 mg/dL Aspartate Amino Transferase (AST) 17 13-40 U/L Alanine Aminotransferase (ALT) 17 7-40 U/L Alkaline Phosphatase 125 H 46-116 U/L Troponin I High Sensitivity 6 </=34 ng/L C-Reactive Protein High Sensitivity 0.16 <1.0 mg/dL Total Protein 6.7 5.7-8.2 g/dL Albumin 4.4 3.2-4.8 g/dL Assessment/Plan Assessment/Plan Generalized weakness Possible Orthostatic hypotension, ?medication induced Headache ? Giant cell arteritis - IV fluids - ESR normal, MALIHA screen pending - urinalysis pending - check for orthostatic vitals - hold doxazosin - IV Toradol Heart failure with improved ejection fraction, no exacerbation History of nonobstructive coronary artery disease - echo in December 2024 shows LVEF 60% - continue on Entresto, amlodipine, Jardiance - atorvastatin and aspirin - at home patient is on atenolol(held because of low heart rate) PUD prophylaxis: Protonix DVT prophylaxis: Enoxaparin Goals of care discussed with the patient for over 27 minutes. Full code Time spent: 39 minutes Plan discussed with Dr. Dooley Plan discussed with: Patient My Orders Orders - BRINA VENTURA RESIDENT Procedure Category Date Status Time Admit ADMIT 03/17/25 Transmitted 22:07 Oxygen By Nasal RT 03/17/25 Transmitted Cannula 22:07 Stat Ekg For Chest DOMINIC 03/17/25 In Process Pain 22:07 Electrocardigram EKG 03/17/25 Logged 22:07 Sacubitril-Valsartan PHA 03/17/25 In Process (Entresto 24-26 Mg 22:15 Orthostatic Vital ED NURSING 03/17/25 Transmitted Signs Vitamin B12 LAB 03/17/25 In Process 22:07 Folate (Folic Acid) LAB 03/17/25 In Process 22:07 Chest Xray 1 View XY 03/17/25 Logged 22:07 Urinalysis LAB 03/17/25 Logged 22:07 Covid19 Antigen Brigitte LAB 03/17/25 Logged Rapid Influenza A&B LAB 03/17/25 Logged 22:07 [place]; Direct LAB 03/17/25 In Process 22:07 Acetaminophen Tablet PHA 03/17/25 In Process (Tylenol Tablet) 22:15 Ketorolac Injection PHA 03/17/25 In Process (Toradol Injection) 22:15 Drug Screen LAB 03/17/25 Logged 22:07 Aspirin Tablet PHA 03/18/25 In Process 10:00 Atorvastatin (Lipitor) PHA 03/18/25 In Process 22:00 Empagliflozin PHA 03/18/25 In Process (Jardiance) 10:00 Amlodipine Tablet PHA 03/18/25 In Process (Norvasc Tablet) 10:00 Date of Service: Mar 17, 2025 Billing Provider: SATYA DOOLEY MD Common Visit Codes: [id number] INP/OBS CARE (HIGH) Secondary Visit Codes: [id number] CARE PLAN 30 MINUTES BRINA VENTURA RESIDENT Mar 18, 2025 00:37
[2025-03-18 00:42] LABS: Urine Bacteria FEW /hpf (None Seen); Urine Blood TRACE /uL (Negative); Urine Clarity Clear (Clear); Urine Color Colorless (Yellow); Urine Protein, UAD Negative (Negative); Urine Specific Gravity 1.007 (1.001-1.035); Urine Squamous Epithelial Cell FEW /hpf (<5); Urine Urobilinogen Normal (Negative); Urine WBC 1 /HPF (0-5)
[2025-03-18 01:43] LABS: Amphetamine Screen, Urine Neg (NEGATIVE); Barbiturate Scree,Urine Neg (NEGATIVE); Benzodiazephine Screen, Urine Neg (NEGATIVE); Cannabinoid Screen, Urine Neg (NEGATIVE); Cocaine Screen, Urine Neg (NEGATIVE); Opiate Scree,Urine Neg (NEGATIVE); Phencyclidine Screen, Urine Neg (NEGATIVE)
[2025-03-18 01:44] LABS: COVID19 ANTIGEN SOFIA FIA NEGATIVE (NEGATIVE); Rapid Influenza A Negative (Negative); Rapid Influenza B Negative (Negative)
[2025-03-18] MEDS ORDERED: LEVO50TA7 PO (05:20)
[2025-03-18] MEDS: PANTOPRAZOLE 40 MG TAB PO SCH (05:28)
[2025-03-18] MEDS: ACETAMINOPHEN 325 MG TAB PO PRN (05:29)
[2025-03-18] MEDS: ASPirin 81 mg TAB PO SCH (09:05)
[2025-03-18] MEDS: amLODIPine BESYLATE 5 MG TAB PO SCH (09:06)
[2025-03-18] MEDS: EMPAGLIFLOZIN 10 MG TAB PO SCH (09:06)
[2025-03-18] MEDS: ENOXAPARIN SOD 40 MG/0.4 ML SYRINGE SC SCH (09:07)
--- NOTE | 2025-03-18 15:40 | DVHPN2 ---
Subjective I am assuming the care of the patient from today onwards who was under the care of the hospitalist team. Patient is complaining of bilateral temporal pain and tenderness. Initially presented to the hospital with generalized weakness. Patient has stated that she has a known history of giant cell arteritis since 2015 and gets temporal tenderness every day. She is requesting to get a neurology consultation. Patient denies any blurry vision or vision changes. Reviewed: Care Plan Changes from previous H/P or p: No Changes Objective Vitals Vital Signs Date Time Temp Pulse Resp B/P (MAP) Pulse Ox O2 Delivery O2 Flow Rate FiO2 03/18/25 13:00 98.4 67 17 145/69 (94) 99 98.4 03/18/25 08:05 Room Air* 0 21 Intake/Output Intake and Output 03/18/25 07:00 Intake Total 0 ml Balance 0 ml Intake Oral 0 ml Exam HEENT pupils are reactive Neck is supple CV is S1-S2 regular rate and rhythm Respiratory diminished breath sounds bases GI positive bowel sound Extremity no edema TAX ATTORNEY no motor deficit Medications Current Medications Medications Dose Ordered Sig/Travon Route Start Time Stop Time Status Last Admin Dose Admin Sacubitril/ Valsartan 1 tab BID PO 03/17/25 22:15 03/18/25 09:06 1 TAB Acetaminophen 650 mg Q6HP PRN PO 03/17/25 22:15 03/18/25 05:29 650 MG Ketorolac Tromethamine 15 mg Q6HPRN PRN IV 03/17/25 22:15 03/22/25 22:14 03/18/25 00:29 15 MG Aspirin 81 mg DAILY PO 03/18/25 10:00 03/18/25 09:05 81 MG Atorvastatin Calcium 40 mg HS PO 03/18/25 22:00 Empaglifozin 10 mg DAILY PO 03/18/25 10:00 03/18/25 09:06 10 MG Amlodipine Besylate 5 mg DAILY PO 03/18/25 10:00 03/18/25 09:06 5 MG Pantoprazole Sodium 40 mg DAILY@0600 PO 03/18/25 06:00 03/18/25 05:28 40 MG Enoxaparin Sodium 40 mg DAILY SC 03/18/25 10:00 03/18/25 09:07 40 MG Laboratory Results Laboratory Tests 03/17/25 13:05 Urinalysis Test 03/17/25 23:58 Urine Color Colorless (Yellow) Urine Clarity Clear (Clear) Urine pH 5.0 (5.0-9.0) Urine Specific [place] 1.007 (1.001-1.035) Urine Protein Negative (Negative) Urine Ketones Negative (Negative) Urine Blood Trace /uL (Negative) H Urine Nitrite Negative (Negative) Urine Bilirubin Negative (Negative) Urine Urobilinogen Normal mg/dL (Negative) Urine Leukocyte Esterase Negative /uL (Negative) Urine RBC 1 /hpf (0 - 4) Urine Microscopic WBC 1 /HPF (0-5) Urine Squamous Epithelial Cells Few /hpf (<5) Urine Bacteria Few /hpf (None Seen) H Urine Glucose Normal mg/dL (Normal) Assessment/Plan Assessment/Plan 72-year-old female with a known history of congestive heart failure hypertension, dyslipidemia initially presented to hospital with generalized weakness dizziness. Found to have 1. Generalized weakness 2. Dizziness rule out orthostatic hypotension 3. Bilateral temporal headache with a known history of giant cell arteritis for years 4. Congestive heart failure with diastolic dysfunction currently compensated 5. Coronary artery disease. 6. Dizziness rule out orthostatic hypotension. -continue [place] medications, ESR CRP is normal. Neurology consultation with a known history of giant cell arteritis. -check orthostatic vital signs. Plan discussed with: Patient, Other My Orders Orders - EMIGDIO VALDEZ MD Procedure Category Date Status Time * Neurology Consult CONS 03/18/25 Transmitted 15:36 Date of Service: Mar 18, 2025 Billing Provider: EMIGDIO VALDEZ MD Common Visit Codes: [id number] INP/OBS CARE(HIGH) EMIGDIO VALDEZ MD Mar 18, 2025 15:40
[2025-03-18] MEDS: ATORVASTATIN 20 MG TAB PO SCH (22:11)
[2025-03-18] MEDS: MELATONIN 5 MG TAB PO SCH (23:11)
[2025-03-19] VITALS (11 sets, daily range): BP systolic 110–133; BP diastolic 53–88; PULSE 50–68; RESP 15–18; TEMP 36.6; O2SAT 96–99
--- NOTE | 2025-03-19 16:44 | DVHINCON2 ---
Date of service: Mar 19, [address] Sims Reason for Consultation History of giant cell arteritis History of Present Illness Ms. Pemberton is a right-handed female with a history of hypertension, dyslipidemia, hypothyroidism, coronary artery disease, congestive heart failure, asthma, glaucoma, anxiety, she came to the [facility] on 03/17/2025 with a chief company of general weakness, and hearing her heart beating, she also has a history of temporal arteritis I saw on 03/08/2013 for new onset headache She never had headache in her life, in 2012, she developed intermittent bilateral temporal sharp/aching headache with heightened sensitivity to lights, noise., since 2014, the headache has been constant, mostly 8/10. She was said to have temporal arteritis after left temporal artery biopsy in 2014, but she reports she has never received steroid or other treatment for the temporal arteritis On 03/19/2025, the patient is asked for another temporal artery biopsy She had no vision change until early 2023, when she developed bilateral blurry vision, and she was seen by [facility] and the [facility] quality improvement specialist in 2023 and she was said to have glaucoma. 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 5 mg Urinalysis, 03/17/2025: No UTI UDS, 03/17/2025: Negative CBC, 03/17/2025: Unremarkable ESR, 03/17/25: 2 CMP, 03/02/13: 6, 03/17/2025: Unremarkable HGB A1c, 03/08/20: 1.2 CRP, 03/17/2025: 0.16 TG/HDL/LDL/HDL, 12/10/2024: 116/129/62/48 Past Medical History Hypertension, dyslipidemia, hypothyroidism, coronary artery disease, congestive heart failure, asthma, glaucoma, anxiety Past Surgical History Appendectomy, bilateral tubal ligation, bladder lift, cholecystectomy, tonsillectomy, left temporal artery biopsy Family History: Alcoholism Cardiovascular disease G8 FATHER Diabetes mellitus G8 MOTHER Hypertension G8 FATHER Family History Hypertension, diabetes, heart disease, alcoholism, no headache Social History The patient is a nonsmoker. No history of alcohol or recreational substance abuse Allergies: Coded Allergies: Sulfamethoxazole w/Trimethoprim (Verified Allergy, Unknown, 01/15/22) Home Meds Active Scripts Empagliflozin (Jardiance) 10 Mg Tab, 10 MG PO DAILY, #90 TAB Prov:ROMINA MERAZ MD 02/18/24 Levothyroxine Sodium (SYNTHROID TABLET) 50 Mcg Tb, 50 MCG PO QAM for 30 Days, #30 TAB Prov:PORSCHE RUSH MD 03/09/20 Aspirin (Asa) 81 Mg Ch, 81 MG PO DAILY for 100 Days, #100 TAB Prov:PORSCHE RUSH MD 03/09/20 Reported Medications Levothyroxine Sodium (Levothyroxine Sodium) 50 Mcg Tab, 1 TAB PO DAILY 03/18/25 Gabapentin (Gabapentin) 100 Mg Cap 12/10/24 Furosemide (Furosemide) 20 Mg Tab, 1 TAB PO DAILY, #90 TAB 1 Refill 03/24/24 Atenolol (Atenolol) 25 Mg Tab, 25 MG PO DAILY for 30 Days, MG 03/24/24 Spironolactone (Spironolactone) 25 Mg Tab, 1 TAB PO DAILY, #90 TAB 1 Refill 03/24/24 Atorvastatin Calcium (ATORVASTATIN CALCIUM) 40 Mg Tab, 1 TAB PO DAILY, #30 TAB 5 Refills 03/24/24 Sacubitril-Valsartan (Entresto 24-26 mg) 1 Tab Tab, 1 TAB PO DAILY 02/17/24 Doxazosin Mesylate (Doxazosin Mesylate) 1 Mg Tab, 1 TAB PO DAILY 02/15/24 Omeprazole (Omeprazole Dr) 20 Mg Cap, 1 CAP PO DAILY 02/15/24 Ranolazine (Ranolazine ER) 1,000 Mg Tab, 1 TAB PO BID 02/15/24 Amlodipine Besylate (Amlodipine Besylate) 10 Mg Tab, 1 TAB PO DAILY 02/15/24 Current Medications Current Medications Medications (Trade) Dose Ordered Sig/Travon Route PRN Reason Start Time Stop Time Status Last Admin Atorvastatin Calcium (Lipitor) 40 mg HS PO 03/18/25 22:00 03/18/25 22:11 Melatonin (Melatonin) 5 mg HS PO 03/18/25 22:00 03/18/25 22:53 DC 03/18/25 23:11 Review of Systems As above, the other systems are negative Vital Signs Vital Signs Date Time Temp Pulse Resp B/P (MAP) Pulse Ox O2 Delivery O2 Flow Rate FiO2 03/19/25 13:20 68 130/78 (95) 03/19/25 13:15 97.3 18 96 97.3 03/19/25 08:00 Room Air* 0 21 Physical Exam GENERAL EXAM: General: the patient is well developed and nourished. No acute distress. HEENT: Normocephalic, neck is supple, no carotid bruits. No mass. Intense tenderness to palpation in bilateral temporal head region, but without local erythema, swelling, permanent vasculatures RESPIRATORY: Normal respiratory effort with symmetrical lung expansion. Lungs clear to auscultation. CARDIOVASCULAR: Regular rate and rhythm with no murmurs. S1, S2. ABDOMEN: Soft, nontender, normal bowel sound NEUROLOGICAL: MENTAL STATUS: Awake and alert. Oriented to person, place, time and general circumstances. Able to give personal history. The patient is aware of recent events SPEECH, LANGUAGE, HIGHER CORTICAL FUNCTION: no aphasia or dysathria. CRANIAL NERVES: #2: Intact visual lange to confrontation. The optic discs were sharp. Retinal background was uniformly pink in appearance. There was no hemorrhages or exudates. #3,4,6: Pupils are equal, round and reactive. EOMs full and conjugate. Mild bilateral gaze evoked nystagmus. #5: Facial sensation intact in all three divisions bilaterally. Mandibular strength intact. #7: Facial muscles symmetrical and strength intact. #8: Hearing grossly normal to voice. #9,10: Uvula and soft palate rise in the midline. Swallow and voice are normal. #11: Trapezius and sternomastoid strength intact bilaterally. #12: Tongue midline. No fasciculations or atrophy. SENSATION: Sensation to touch and pinprick is normal. MOTOR: Normal tone in the upper and lower extremity. Normal muscle bulk. No fasciculations. No abnormal movements or posturing. Muscle strength of the major groups in the upper extremities is 5/5. Muscle strength of the major groups in the lower extremities is 5/5. REFLEXES: Deep tendon reflexes are symmetrical. No pathological reflexes. CEREBELLAR/COORDINATION: Finger to nose is normal bilaterally. GAIT/STATION: Within normal limits Labs/Diagnostic Data Labs Test 03/18/25 00:29 03/17/25 23:58 03/17/25 22:40 03/17/25 13:05 Range/Units Influenza Type A Antigen Negative Negative Influenza Type B Antigen Negative Negative SARS-CoV-2 Antigen (Rapid) Negative NEGATIVE Urine Color Colorless Yellow Urine Clarity Clear Clear Urine pH 5.0 5.0-9.0 Urine Specific [place] 1.007 1.001-1.035 Urine Protein Negative Negative Urine Ketones Negative Negative Urine Blood Trace H Negative /uL Urine Nitrite Negative Negative Urine Bilirubin Negative Negative Urine Urobilinogen Normal Negative mg/dL Urine Leukocyte Esterase Negative Negative /uL Urine RBC 1 0 - 4 /hpf Urine Microscopic WBC 1 0-5 /HPF Urine Squamous Epithelial Cells Few <5 /hpf Urine Bacteria Few H None Seen /hpf Urine Glucose Normal Normal mg/dL Urine Opiates Screen Neg NEGATIVE Urine Fentanyl Screen Neg NEGATIVE Urine Barbiturates Screen Neg NEGATIVE Urine Phencyclidine Screen Neg NEGATIVE Urine Amphetamines Screen Neg NEGATIVE Urine Benzodiazepines Screen Neg NEGATIVE Urine Cocaine Screen Neg NEGATIVE Urine Cannabinoids Screen Neg NEGATIVE White Blood Count 5.4 4.4-10.8 10^3/uL Red Blood Count 4.80 4.0-5.20 10^6/uL Hemoglobin 13.9 12.2-16.2 g/dL Hematocrit 42.4 36.0-46.0 % Mean Corpuscular Volume 88.3 80.0-100.0 fL Mean Corpuscular Hemoglobin 29.0 28.0-32.0 pg Mean Corpuscular Hemoglobin Concent 32.8 32.0-36.0 g/dL Red Cell Distribution Width 15.3 H 11.8-14.3 % Platelet Count 160 140-450 10^3/uL Mean Platelet Volume 9.5 6.9-10.8 fL Neutrophils (%) (Auto) 54.3 37.0-80.0 % Lymphocytes (%) (Auto) 36.1 10.0-50.0 % Monocytes (%) (Auto) 8.0 0.0-12.0 % Eosinophils (%) (Auto) 1.3 0.0-7.0 % Basophils (%) (Auto) 0.3 0.0-2.0 % Neutrophils # (Auto) 2.9 1.6-8.6 10 ^3/uL Lymphocytes # (Auto) 2.0 0.4-5.4 10 ^3/uL Monocytes # (Auto) 0.4 0-1.3 10 ^3/uL Eosinophils # (Auto) 0.1 0-0.8 10 ^3/uL Basophils # (Auto) 0 0-0.2 10 ^3/uL Nucleated Red Blood Cells 0.0 % Erythrocyte Sedimentation Rate 2 0-20 mm/hr Sodium Level 142 136-145 mmol/L Potassium Level 4.2 3.5-5.1 mmol/L Chloride Level 109 H 98-107 mmol/L Carbon Dioxide Level 22 20-31 mmol/L Anion Gap 11 5-15 Blood Urea Nitrogen 19 9-23 mg/dL Creatinine 0.81 0.550-1.02 mg/dL Glomerular Filtration Rate Calc 77 >90 mL/min BUN/Creatinine Ratio 23.5 H 10.0-20.0 Serum Glucose 96 74-106 mg/dL Calcium Level 9.1 8.7-10.4 mg/dL Magnesium Level 1.7 1.6-2.6 mg/dL Total Bilirubin 0.4 0.2-1.0 mg/dL Aspartate Amino Transferase (AST) 17 13-40 U/L Alanine Aminotransferase (ALT) 17 7-40 U/L Alkaline Phosphatase 125 H 46-116 U/L Troponin I High Sensitivity 6 </=34 ng/L C-Reactive Protein High Sensitivity 0.16 <1.0 mg/dL Total Protein 6.7 5.7-8.2 g/dL Albumin 4.4 3.2-4.8 g/dL Assessment Chronic constant bilateral temporal headache ? Biopsy confirmed temporal arteritis, however not typical clinically ? Medication overuse headache Anxiety Plan/Recommendation Monitoring Supportive treatment Avoid daily pain medication for headache Further address her possible medication overuse headache as outpatient Rheumatology consultation as outpatient Re: Temporal arteritis Follow up with me CHOPRA on discharge, office number: [phone] More recommendation per clinical course Okay to discharge from neurologic point of view I have some time with her discussing my impression recommendation (she looks convinced that she has temporal arteritis) Talked to her nurse, Have Discussed with Dr. Sims Prognosis: Poor This medical document was created using an electronic medical record system with [employer] system. Although this document has been carefully reviewed, there may still be some phonetic and typographical errors. These areas are purely typographical due to imperfections of the software programs, and do not reflect any compromise in the patient's medical care. Plan discussed with: Patient, Other BARRY LAGUERRE MD Mar 19, 2025 16:44
--- NOTE | 2025-03-19 17:59 | DVHDS2 ---
Discharge Summary Date of Admission Mar 17, 2025 at 22:07 Date of Discharge: Mar 19, 2025 Labs/Diagnostic Data: Laboratory Results Test 03/18/25 00:29 03/17/25 23:58 03/17/25 22:40 03/17/25 13:05 Influenza Type A Antigen Negative (Negative) Influenza Type B Antigen Negative (Negative) SARS-CoV-2 Antigen (Rapid) Negative (NEGATIVE) Urine Color Colorless (Yellow) Urine Clarity Clear (Clear) Urine pH 5.0 (5.0-9.0) Urine Specific [place] 1.007 (1.001-1.035) Urine Protein Negative (Negative) Urine Ketones Negative (Negative) Urine Blood Trace /uL (Negative) Urine Nitrite Negative (Negative) Urine Bilirubin Negative (Negative) Urine Urobilinogen Normal mg/dL (Negative) Urine Leukocyte Esterase Negative /uL (Negative) Urine RBC 1 /hpf (0 - 4) Urine Microscopic WBC 1 /HPF (0-5) Urine Squamous Epithelial Cells Few /hpf (<5) Urine Bacteria Few /hpf (None Seen) Urine Glucose Normal mg/dL (Normal) Urine Opiates Screen Neg (NEGATIVE) Urine Fentanyl Screen Neg (NEGATIVE) Urine Barbiturates Screen Neg (NEGATIVE) Urine Phencyclidine Screen Neg (NEGATIVE) Urine Amphetamines Screen Neg (NEGATIVE) Urine Benzodiazepines Screen Neg (NEGATIVE) Urine Cocaine Screen Neg (NEGATIVE) Urine Cannabinoids Screen Neg (NEGATIVE) White Blood Count 5.4 10^3/uL (4.4-10.8) Red Blood Count 4.80 10^6/uL (4.0-5.20) Hemoglobin 13.9 g/dL (12.2-16.2) Hematocrit 42.4 % (36.0-46.0) Mean Corpuscular Volume 88.3 fL (80.0-100.0) Mean Corpuscular Hemoglobin 29.0 pg (28.0-32.0) Mean Corpuscular Hemoglobin Concent 32.8 g/dL (32.0-36.0) Red Cell Distribution Width 15.3 % (11.8-14.3) Platelet Count 160 10^3/uL (140-450) Mean Platelet Volume 9.5 fL (6.9-10.8) Neutrophils (%) (Auto) 54.3 % (37.0-80.0) Lymphocytes (%) (Auto) 36.1 % (10.0-50.0) Monocytes (%) (Auto) 8.0 % (0.0-12.0) Eosinophils (%) (Auto) 1.3 % (0.0-7.0) Basophils (%) (Auto) 0.3 % (0.0-2.0) Neutrophils # (Auto) 2.9 10 ^3/uL (1.6-8.6) Lymphocytes # (Auto) 2.0 10 ^3/uL (0.4-5.4) Monocytes # (Auto) 0.4 10 ^3/uL (0-1.3) Eosinophils # (Auto) 0.1 10 ^3/uL (0-0.8) Basophils # (Auto) 0 10 ^3/uL (0-0.2) Nucleated Red Blood Cells 0.0 % Erythrocyte Sedimentation Rate 2 mm/hr (0-20) Sodium Level 142 mmol/L (136-145) Potassium Level 4.2 mmol/L (3.5-5.1) Chloride Level 109 mmol/L (98-107) Carbon Dioxide Level 22 mmol/L (20-31) Anion Gap 11 (5-15) Blood Urea Nitrogen 19 mg/dL (9-23) Creatinine 0.81 mg/dL (0.550-1.02) Glomerular Filtration Rate Calc 77 mL/min (>90) BUN/Creatinine Ratio 23.5 (10.0-20.0) Serum Glucose 96 mg/dL (74-106) Calcium Level 9.1 mg/dL (8.7-10.4) Magnesium Level 1.7 mg/dL (1.6-2.6) Total Bilirubin 0.4 mg/dL (0.2-1.0) Aspartate Amino Transferase (AST) 17 U/L (13-40) Alanine Aminotransferase (ALT) 17 U/L (7-40) Alkaline Phosphatase 125 U/L (46-116) Troponin I High Sensitivity 6 ng/L (</=34) C-Reactive Protein High Sensitivity 0.16 mg/dL (<1.0) Total Protein 6.7 g/dL (5.7-8.2) Albumin 4.4 g/dL (3.2-4.8) Other Laboratory Tests 03/17/25 13:05 Brief Hx & Hospital Course: 72-year-old female with a known history of congestive heart failure hypertension, dyslipidemia initially presented to hospital with generalized weakness dizziness. Patient was eventually admitted monitored on telemetry. Patient also complaining of history of giant cell arteritis since 2015 getting daily headaches. Neurology was consulted patient is cleared to be discharged with a close follow up as an outpatient with the Neurology as well as Rheumatology. Patient is currently understand verbalized understanding and agreeable to plan. Condition at Discharge: Stable Final Diagnosis/Problems List 72-year-old female with a known history of congestive heart failure hypertension, dyslipidemia initially presented to hospital with generalized weakness dizziness. Found to have 1. Generalized weakness 2. Dizziness ruled out orthostatic hypotension 3. Bilateral temporal headache with a known history of giant cell arteritis for years 4. Congestive heart failure with diastolic dysfunction currently compensated 5. Coronary artery disease. 6. Dizziness rule out orthostatic hypotension. Discharge Disposition: Home SNF Discharge Will this Physician continue t: No Discharge Instruct/Medications Diet: Cardiac 2g Na,low cholest Activity: No Restrictions, As Tolerated Follow Up/Referral: Follow up with the PCP in one week Follow up with the Rheumatology in one week Follow up with Dr. Franco, neurology in less than one week. Medications: Resume home medications Discharge Statement: "Patient was advised to return to the ER or call 911 if any headaches, dizziness, shortness of breath, chest pain, abdominal pain, bleeding, fevers, or worsening of medical condition. Patient was counseled about treatment plan, medications, possible side effects, patientverbalized understanding. All questions were answered to the best of my ability. This discharge took greater then 30 minutes in planning, reviewing documentation, counseling the patient, and discussing with other team members." ASSESSMENT ASSESSMENT Assessment 72-year-old female with a known history of congestive heart failure hypertension, dyslipidemia initially presented to hospital with generalized weakness dizziness. Found to have 1. Generalized weakness 2. Dizziness ruled out orthostatic hypotension 3. Bilateral temporal headache with a known history of giant cell arteritis for years 4. Congestive heart failure with diastolic dysfunction currently compensated 5. Coronary artery disease. 6. Dizziness rule out orthostatic hypotension. Date of Service: Mar 19, 2025 Billing Provider: EMIGDIO VALDEZ MD Common Visit Codes: [id number] DISCH DAY >30min EMIGDIO VALDEZ MD Mar 19, 2025 17:59
[2025-03-20 11:17] LABS: Folate (Folic Acid) 23.34 ng/mL (>5.38)
--- NOTE | 2025-03-20 12:14 | ECG ---
[facility] Test Date: 2025-03-17 Test Time: 12:04:02 Pat Name: DANA MODI Department: ER Room: 0290 B Gender: F Cdc Associate: KESHA : 1950 Requested By: BRUCE SPRING Order Number: [id number] Reading MD: Mejia Coombs Measurements Intervals [place] Rate: 61 P: 50 NH: 170 QRS: 14 QRSD: 89 T: 14 QT: 381 QTc: 384 Interpretive Statements Sinus rhythm Low voltage, precordial leads Baseline wander in lead(s) I,II,aVR Electronically Signed On 03-22-2025 20:30:58 PDT by Mejia Coombs Please click the below link to view image of tracing.
--- NOTE | 2025-03-21 15:41 | DVH ---
CHEST RADIOGRAPH Indication: SOB Technique: Single frontal view of the chest was obtained COMPARISON: XY CHEST PORTABLE on DOS: 12/10/24, XY CHEST PORTABLE on DOS: 02/15/24, CHEST PORTABLE on DOS : 11/08/21, CHEST PORTABLE on DOS: 03/11/20, CHEST PORTABLE on DOS: 03/08/20 FINDINGS: Lines and Tubes: None Lungs: Clear Pleura: No effusion. No pneumothorax. Cardiomediastinal contours: Unremarkable Bones: Unremarkable IMPRESSION: 1. No acute disease.
== END 2025-03-19 20:15 | disposition home or self-care (01) | DRG 74 ==
LOC: ER 11:41 → OVERFLOW 22:07 → WEST WING 03-18 03:47
PROVIDERS: ATTEND Emergency Medicine
DX: G90.89 Other disorders of autonomic nervous system (principal); I50.32 Chronic diastolic (congestive) heart failure; I25.10 Atherosclerotic heart disease of native coronary artery without angina pectoris; E78.5 Hyperlipidemia, unspecified; E87.8 Other disorders of electrolyte and fluid balance, not elsewhere classified; E03.9 Hypothyroidism, unspecified; I11.0 Hypertensive heart disease with heart failure; F41.9 Anxiety disorder, unspecified; J45.909 Unspecified asthma, uncomplicated; Z90.49 Acquired absence of other specified parts of digestive tract; Z83.3 Family history of diabetes mellitus; Z82.49 Family history of ischemic heart disease and other diseases of the circulatory system; Z79.84 Long term (current) use of oral hypoglycemic drugs; Z79.899 Other long term (current) drug therapy
CPT/HCPCS: 36415; 71045; 80048; 80053; 80307; 81001; 82607; 82746; 83735; 84484; 85025; 85652; 86038; 86141; 87426; 87804; 93005; G0378; J1885